=== PATIENT | male | born 1935 | race Caucasian/White ===

== ENCOUNTER → 2020-02-15 09:42 | Outpatient (CLI) | payer MEDICARE, OTHER, SELFPAY ==
[2020-02-16 03:44] LABS: COVID19 Sendout Not Detected (Not Detect)
== END ==
PROVIDERS: Visit Provider Physician Assistant
DX: Z01.812 Encounter for preprocedural laboratory examination (principal)
CPT/HCPCS: 87635

== ENCOUNTER 2020-02-19 14:24 | Inpatient (IN) | payer MEDICARE, OTHER, SELFPAY ==
[2020-02-12 08:46] VITALS: BMI 25.4
[2020-02-18] VITALS (16 sets, daily range): BP systolic 100–161; BP diastolic 50–96; PULSE 45–98; RESP 12–18; TEMP 35.6–36.8; O2SAT 95–98; BMI 25.4
--- NOTE | 2020-02-18 | DI.RAD.S_ITS ---
PROCEDURE: XR KNEE RT 1TO2V INDICATIONS: TOTAL RIGHT KNEE TECHNIQUE: 2 view(s) of the knee acquired. COMPARISON: None. FINDINGS: Bones: Patient is status post knee joint arthroplasty. Hardware components are in expected positions. Visualized bony structures are intact. Soft tissues: Overlying postoperative changes are noted. IMPRESSION: Post right total knee arthroplasty changes with anatomic right knee alignment. Dictated by: Juan Noble M.D. on 02/18/2020 at 13:02 Approved by: Juan Noble M.D. on 02/18/2020 at 13:03
[2020-02-18] MEDS: LACTATED RINGERS 1,000 ML 42 ML IV (08:40)
--- NOTE | 2020-02-18 09:02 | PM.PREOP ---
Pre-operative Note COVID-19 COVID-19 status: Negative Result date/Date tested (Pos, Neg/Pending): 02/16/20 Interval Note History & Physical reviewed/Exam performed by Physician: Yes Changes to H&P: No
--- NOTE | 2020-02-18 09:03 | PM.OP.1 ---
Operative Date/Time/Diagnoses Date of procedure: 02/18/20 Time of procedure: 11:17 Pre-op diagnosis: Right knee osteoarthritis Post-op diagnosis: same Procedure & Clinicians Procedure: Right total knee arthroplasty Same procedure as scheduled: Yes Indications: The patient presents today for total knee arthroplasty after failure of conservative treatment. The nature of the procedure including the risks and benefits, alternatives, postoperative course and expected outcome were discussed and all questions answered. Consent was obtained. Operative site confirmed and marked. Surgeon: Ion Medeiros Iphone Developer: William Armstrong Anesthesia Type: General, Spinal and Local Operative Notes Closure Type: primary Specimen(s): none sent Prosthetic devices, grafts, tissues, transplants, or devices: [employer] [facility] BCS: 7 femoral component, 6 tibial component, 9 mm BCS polyethylene tray and 35 x 10 mm round patella Applied: implant(s) Estimated Blood Loss (mL): 10 Blood products transfused: none Tourniquet time (min): 58 Procedure in detail: The patient was taken to the operative suite and placed under anesthesia. The patient was given prophylactic antibiotics prior to surgery. The patient was also given tranexamic acid, 1 g, just prior to surgery for postoperative hemostasis. The lateral knee was prepped and the joint injected with 20 mL of 1% Lidocaine with epinephrine. The knee was then prepped and draped in usual sterile fashion. The leg was exsanguinated with an Esmarch dressing and the tourniquet raised to 250 torr. A 15 cm anterior incision was made. Next a medial trivector arthrotomy was made. The extensor mechanism was marked to ensure accurate repair. Initial exposing dissection was carried out medially and laterally. The knee was then flexed and the intramedullary femoral guide belinda placed. The distal femoral cut was made in 6? of valgus at the +0 position. The femoral size was measured and the appropriate cutting block was then placed and the anterior, posterior and chamfer cuts made. The intramedullary tibial alignment belinda was then placed. The guide was set to remove approximately 9 mm from the lateral side. The proximal tibial cut was then made with an oscillating saw. All meniscus and bony debris was then removed. Posterior femoral osteophytes removed with a curved osteotome. Flexion extension gaps were checked. There was just mild tightness medially especially in flexion. This was corrected with percutaneous release of the MCL with an 18 gauge needle. The soft tissues were then injected with a combination of 20 mL of half percent Marcaine with epinephrine and 20 mL of Exparel. The trial components were then placed. The knee was then extended and the patellar thickness was measured and a cut made removing approximately 9 mm of bone. The patella was then sized and drilled. Some excess lateral bone was excised and the patellofemoral ligament released. The knee went into full extension and flexion beyond 130?. There was excellent medial-lateral balance throughout motion. Patellar tracking was excellent. The trial components were removed and the knee was cleansed with Pulsavac irrigation and dried. The final components were cemented with high viscosity vacuum mixed bone cement with antibiotics. The joint was filled with a dilute Betadine solution. The knee was held in extension and the patellar clamped until the cement was adequately cured. The knee was then irrigated. The extensor mechanism was closed with 5 interrupted #1 Vicryl sutures and a running Quill suture at approximately 90 degrees of flexion. The joint was then injected with a combination of 1 g of tranexamic acid and 20 mL of quarter percent Marcaine with epinephrine. The subcutaneous tissue was closed with 2 0 Vicryl. The skin was closed with absorbable subcuticular sutures and surgical adhesive. An Aquacel dressing and Chapito wrap were then applied. The patient tolerated the procedure well and was returned to recovery room in good condition. Complications: none Post-operative Condition: stable Disposition: PACU Plan for aftercare: [facility] protocol.
[2020-02-18] MEDS: CEFAZOLIN 2 GM/100 ML FROZ.PIGGY IV ×2 (09:55→18:14)
[2020-02-18] MEDS: LIDOCAINE 1% W/EPI 20 ML INJ (10:10)
[2020-02-18] MEDS: TRANEXAMIC ACID 1,000 MG VIAL 1000 MG IV (10:17)
--- NOTE | 2020-02-18 10:29 | SUR.OPER ---
Supine on padded OR bed. Pillow under head, arms secured on padded armboards <90 degree abduction. Safety belt across torso. Non-operative leg secured with tape over blanket over lower leg. Operative leg secured in DeMayo/Franko positioner. Foam padded brace at thigh of operative leg.
[2020-02-18] MEDS: BUPIVACAINE 0.25% W/ EPI (PF) 40 ML, BUPIVACAINE LIPOSOME 266 MG, SODIUM CHLORIDE 0.9% ... INJ (10:38)
[2020-02-18] MEDS: SODIUM CHLORIDE IRRIG SOLUTION 250 ML, POVIDONE-IODINE SPONGE STICKS 1 APPLIC IRR (10:43)
[2020-02-18] MEDS: TRANEXAMIC ACID 1,000 MG VIAL 1000 MG INJ (10:49)
[2020-02-18] MEDS: BUPIVACAINE 0.25% W/ EPI 30 ML VIAL 20 ML INJ (11:03)
[2020-02-18] MEDS: SODIUM CHLORIDE 0.9% FLUSH 20 ML IV (11:05)
[2020-02-18] MEDS: LACTATED RINGERS 1,000 ML 100 ML IV (13:20)
[2020-02-18] MEDS: IBUPROFEN 400 MG TABLET PO ×2 (13:22→16:52)
--- NOTE | 2020-02-18 14:10 | PT.IIE ---
Current Diagnoses Unilateral primary osteoarthritis, right knee (02/18/20) Surgery Performed Operation Date: 02/18/20 09:00 Actual Procedures p Total Knee Arthroplasty(Right) - Ion Medeiros MD Surgical History (Last Updated 02/12/20 @ 09:19 by Tati Lin RN) H/O cardiac radiofrequency ablation (Acute 08/03/09) H/O vasectomy (Acute) History of colonoscopy (Acute) History of coronary angioplasty with insertion of stent (Acute) Hx of arthroscopic knee surgery (Acute) Hx of bilateral cataract extraction (Acute) Hx of heart artery stent (Acute 06/2009) Hx of hernia repair (Acute) Hx of shoulder surgery (Acute) Hx of tonsillectomy (Acute) Medical History (Last Updated 02/12/20 @ 09:19 by Tati Lin RN) Ascending aorta enlargement (Acute) CAD (coronary artery disease) (Acute) Easy bruisability (Acute) Esophageal spasm (Acute) Former smoker (Acute) Gout (Acute) HLD (hyperlipidemia) (Acute) HTN (hypertension) (Acute) Hypothyroidism (Acute) Nonrheumatic aortic (valve) stenosis (Acute) Subdural hematoma (Acute) TIA (transient ischemic attack) (Acute) Physical Therapy Inpatient Evaluation/Re-Eval M1 PT/OT-IP Prior Functional Status Start: 02/18/20 15:47 Freq: NEEDED Status: Active Protocol: Document 02/18/20 14:10 AB (Rec: 02/18/20 16:24 AB [id number]) Medical Review Prior Functional Status Medical History Reviewed Yes Communication able to make needs known Mobility and Gait pt stated that he is independent with all mobilities and ambulation without AD. Social History Household Members spouse Living Arrangements House Number of Floors (Floors) Two Floors Number of Stairs To Enter/Railing? has a sunken living room with 2 steps down with 1/2 wall ledge on either side but can only use one side at a time has 2 steps to enter with R rail + 1 platform step to enter Home Environment Standard Height Toilet,Walk in Shower Home Equipment Four Wheel Walker,Straight Cane,Hand Held Shower,Grab Bars In Shower Additional Social History Comment pt has a regular bed with R side bedrail wpouse will not be able to assist pt physically; son may assist if needed M2 PT-IP Current Condition Start: 02/18/20 15:47 Freq: NEEDED Status: Active Protocol: Document 02/18/20 14:10 AB (Rec: 02/18/20 16:24 AB [id number]) Physical Therapy Current Condition Current Condition Evaluation Date 02/18/20 Treatment Diagnosis s/p R TKA; difficulty in walking Onset Date 02/18/20 Weight Bearing Status Weight Bearing Status Weight Bear as Tolerated Allowed Weight Bearing Amount (enter % WBAT RLE or #) (%) M3 PT-IP Subjective Start: 02/18/20 15:47 Freq: NEEDED Status: Active Protocol: Document 02/18/20 14:10 AB (Rec: 02/18/20 16:24 AB [id number]) Subjective Physical Therapy Visit Type Type Initial Evaluation Visit Start Time 14:10 Visit Stop Time 14:44 Total Visit Minutes 34 Number of DELIVERY MANAGER Visits 0 Physical Therapy Visit Comments Patient Comments pt agreeable to do PT Therapy Pain Assessment Pain Present Pain Present Denied Pain M4 PT-IP Mobility and Gait Start: 02/18/20 15:47 Freq: NEEDED Status: Active Protocol: Document 02/18/20 14:10 AB (Rec: 02/18/20 16:24 AB [id number]) PT-Bed Mobility Assessment Supine to Sit Supine to Sit Standby Assistance Sit to Supine Sit to Supine Standby Assistance Scooting Scooting to Edge of Bed Contact Guard Assistance PT-Transfer Assessment Sit to and From Stand Sit to and from Stand Moderate Assistance,Maximum Assistance,1 Person Assistance ,2 Person Assistance,Use of Upper Extremities Equipment Transfer Assistive Device Gait Belt,Front Wheeled Walker Orthotic/Prosthetic Devices or Brace: Yes Comments Mobility Comments pt stated that he can feels his legs but not so much of his buttocks. completed supine to sit SBA. required CGA with sitting on EOB. pt has difficulty with trunk control and stated that he cannot feel his butts much. completed sit to stand max A and cues with a 2nd person CGA to min A. pt with increase forward trunk lean and is standing on his toes, cued pt to correct posture and required max A to center self . pt stated that he is definitely still has numbness on his hips. completed sit to stand again mod A x 2 and pt completed marching in place mod A x 2 using FWW and cues. pt able to take side steps to the HOB ~ 2 ft to position using FWW mod A x 2. pt completed sit to supine SBA and cues. positioned pt on bed. call light and table placed within reach. Gait Assessment Gait Gait Assistance Required: Moderate Assistance,2 Person Assist Distance (Feet) 2 Able to Maintain Weight Bearing Status Yes During Gait Assistive Devices Assistive Device Gait Belt,Front Wheeled Walker Orthotic/Prosthetic Devices or Brace: No Gait Deviations General Gait Pattern Antalgic,Decreased Stride Length,Decreased Feet Clearance,Step-to Gait Factors Limiting Gait Function Factors Limiting Gait Function Decreased Sensation,Decreased Strength,Poor Balance,Poor Safety Awareness Comments Gait Comments pls refer to mobility section for details PT-Balance Assessment Sitting Balance and Reactions Static Sitting Balance Ability Fair Dynamic Sitting Balance Ability Fair Standing Balance and Reactions Static Standing Balance Ability Poor Dynamic Standing Balance Ability Poor Device Used FWW M5 PT-IP Objective Assessments Start: 02/18/20 15:47 Freq: NEEDED Status: Active Protocol: Document 02/18/20 14:10 AB (Rec: 02/18/20 16:24 AB [id number]) Orientation Orientation/Cognition Level of Alertness Alert Orientation Name,Age,Place,Situation Safety Awareness Decreased Safety Awareness Gross Range of Motion Lower Extremity ROM Assessment Right Impaired Impairments R knee flexion ~ 90 deg Strength Lower Extremity Strength Assessment Right Impaired Hip 3/5 Knee 3+/5 Sensation Assessment Sensation Light Touch Impaired Proprioception (Position) Impaired Sensation Description Numbness Comments Sensation Comments B hips and buttocks numbness M6 PT-IP Treatment Start: 02/18/20 15:47 Freq: NEEDED Status: Active Protocol: Document 02/18/20 14:10 AB (Rec: 02/18/20 16:24 AB [id number]) Physical Therapy Treatment Exercises Exercises Heel Slides Education Education Provided Precautions,Weight Bearing Status,Post-Op Packet,Safety M7 PT-IP Assessment and Plan Start: 02/18/20 15:47 Freq: NEEDED Status: Active Protocol: Document 02/18/20 14:10 AB (Rec: 02/18/20 16:24 AB [id number]) PT Summary Assessment and Plan Potential Rehabilitation Potential Fair Status of Condition at Evaluation Evolving Summary Impairments Pain,ROM,Strength,Balance, Sensation,Bed Mobility, Transfers,Gait,Activity Tolerance Assessment Summary pt s/p R TKA and just had surgery this morning. pt still c/o numbness on B hips and buttocks but able to feels knees/lower leg and feet. pt with decrease trunk control due to numbness and unable to do much activity with PT. pt requiring 2 person assist at this time and will require continued assessment for progress for safe d/c plan. pt wants to go home but spouse will not be able to physically assist him due to 's own medical issues. pt stated that his son that lives close by can assist if needed. Goals Bed Mobility Goal Independent Transfer Goal Independent,Front Wheeled Walker,Four Wheeled Walker Gait Goal Independent,Front Wheel Walker ,Four Wheel Walker Gait Distance 150 Other Goals up/down 2 steps R rail and 1 platform step SBA Days to Meet Goals 5 Frequency of Treatment Frequency Of Treatment Twice a Day Treatment Plan Physical Therapy Treatment Plan Bed Mobility Training,Transfer Training,Gait Training, Therapeutic Exercise,Balance Retraining,Post Op Education, Discharge Planning,Hot or Cold Pack,Neuromuscular Re-ed, Coordination Retraining,Manual Therapy Other Recommendations and Next Treatment ambulation, stair climbing, Focus caregiver training Recommendations To Nursing Amount of Assist Needed PT/OT Assist Only Discharge Recommendations PT Discharge Recommendations Home with Assistance,Home Health,SNF Rehab Other Discharge Recommendations depending on progress : SNF vs home with assist and HHPT Equipment Needed for Home Before FWW if not safe with 4WW Discharge Transportation Needs at Discharge Private Vehicle,Wheelchair/ Cabulance
--- NOTE | 2020-02-18 14:10 | PT.IIE ---
Current Diagnoses Unilateral primary osteoarthritis, right knee (02/18/20) Surgery Performed Operation Date: 02/18/20 09:00 Actual Procedures p Total Knee Arthroplasty(Right) - Ion Medeiros MD Surgical History (Last Updated 02/12/20 @ 09:19 by Tati Lin RN) H/O cardiac radiofrequency ablation (Acute 08/03/09) H/O vasectomy (Acute) History of colonoscopy (Acute) History of coronary angioplasty with insertion of stent (Acute) Hx of arthroscopic knee surgery (Acute) Hx of bilateral cataract extraction (Acute) Hx of heart artery stent (Acute 06/2009) Hx of hernia repair (Acute) Hx of shoulder surgery (Acute) Hx of tonsillectomy (Acute) Medical History (Last Updated 02/12/20 @ 09:19 by Tati Lin RN) Ascending aorta enlargement (Acute) CAD (coronary artery disease) (Acute) Easy bruisability (Acute) Esophageal spasm (Acute) Former smoker (Acute) Gout (Acute) HLD (hyperlipidemia) (Acute) HTN (hypertension) (Acute) Hypothyroidism (Acute) Nonrheumatic aortic (valve) stenosis (Acute) Subdural hematoma (Acute) TIA (transient ischemic attack) (Acute) Physical Therapy Inpatient Evaluation/Re-Eval M1 PT/OT-IP Prior Functional Status Start: 02/18/20 15:47 Freq: NEEDED Status: Active Protocol: Document 02/18/20 14:10 AB (Rec: 02/18/20 16:24 AB [id number]) Medical Review Prior Functional Status Medical History Reviewed Yes Communication able to make needs known Mobility and Gait pt stated that he is independent with all mobilities and ambulation without AD. Social History Household Members spouse Living Arrangements House Number of Floors (Floors) Two Floors Number of Stairs To Enter/Railing? has a sunken living room with 2 steps down with 1/2 wall ledge on either side but can only use one side at a time has 2 steps to enter with R rail + 1 platform step to enter Home Environment Standard Height Toilet,Walk in Shower Home Equipment Four Wheel Walker,Straight Cane,Hand Held Shower,Grab Bars In Shower Additional Social History Comment pt has a regular bed with R side bedrail wpouse will not be able to assist pt physically; son may assist if needed M2 PT-IP Current Condition Start: 02/18/20 15:47 Freq: NEEDED Status: Active Protocol: Document 02/18/20 14:10 AB (Rec: 02/18/20 16:24 AB [id number]) Physical Therapy Current Condition Current Condition Evaluation Date 02/18/20 Treatment Diagnosis s/p R TKA; difficulty in walking Onset Date 02/18/20 Weight Bearing Status Weight Bearing Status Weight Bear as Tolerated Allowed Weight Bearing Amount (enter % WBAT RLE or #) (%) M3 PT-IP Subjective Start: 02/18/20 15:47 Freq: NEEDED Status: Active Protocol: Document 02/18/20 14:10 AB (Rec: 02/18/20 16:24 AB [id number]) Subjective Physical Therapy Visit Type Type Initial Evaluation Visit Start Time 14:10 Visit Stop Time 14:44 Total Visit Minutes 34 Number of PLANT CONTROLS SPECIALIST Visits 0 Physical Therapy Visit Comments Patient Comments pt agreeable to do PT Therapy Pain Assessment Pain Present Pain Present Denied Pain M4 PT-IP Mobility and Gait Start: 02/18/20 15:47 Freq: NEEDED Status: Active Protocol: Document 02/18/20 14:10 AB (Rec: 02/18/20 16:24 AB [id number]) PT-Bed Mobility Assessment Supine to Sit Supine to Sit Standby Assistance Sit to Supine Sit to Supine Standby Assistance Scooting Scooting to Edge of Bed Contact Guard Assistance PT-Transfer Assessment Sit to and From Stand Sit to and from Stand Moderate Assistance,Maximum Assistance,1 Person Assistance ,2 Person Assistance,Use of Upper Extremities Equipment Transfer Assistive Device Gait Belt,Front Wheeled Walker Orthotic/Prosthetic Devices or Brace: Yes Comments Mobility Comments pt stated that he can feels his legs but not so much of his buttocks. completed supine to sit SBA. required CGA with sitting on EOB. pt has difficulty with trunk control and stated that he cannot feel his butts much. completed sit to stand max A and cues with a 2nd person CGA to min A. pt with increase forward trunk lean and is standing on his toes, cued pt to correct posture and required max A to center self . pt stated that he is definitely still has numbness on his hips. completed sit to stand again mod A x 2 and pt completed marching in place mod A x 2 using FWW and cues. pt able to take side steps to the HOB ~ 2 ft to position using FWW mod A x 2. pt completed sit to supine SBA and cues. positioned pt on bed. call light and table placed within reach. Gait Assessment Gait Gait Assistance Required: Moderate Assistance,2 Person Assist Distance (Feet) 2 Able to Maintain Weight Bearing Status Yes During Gait Assistive Devices Assistive Device Gait Belt,Front Wheeled Walker Orthotic/Prosthetic Devices or Brace: No Gait Deviations General Gait Pattern Antalgic,Decreased Stride Length,Decreased Feet Clearance,Step-to Gait Factors Limiting Gait Function Factors Limiting Gait Function Decreased Sensation,Decreased Strength,Poor Balance,Poor Safety Awareness Comments Gait Comments pls refer to mobility section for details PT-Balance Assessment Sitting Balance and Reactions Static Sitting Balance Ability Fair Dynamic Sitting Balance Ability Fair Standing Balance and Reactions Static Standing Balance Ability Poor Dynamic Standing Balance Ability Poor Device Used FWW M5 PT-IP Objective Assessments Start: 02/18/20 15:47 Freq: NEEDED Status: Active Protocol: Document 02/18/20 14:10 AB (Rec: 02/18/20 16:24 AB [id number]) Orientation Orientation/Cognition Level of Alertness Alert Orientation Name,Age,Place,Situation Safety Awareness Decreased Safety Awareness Gross Range of Motion Lower Extremity ROM Assessment Right Impaired Impairments R knee flexion ~ 90 deg Strength Lower Extremity Strength Assessment Right Impaired Hip 3/5 Knee 3+/5 Sensation Assessment Sensation Light Touch Impaired Proprioception (Position) Impaired Sensation Description Numbness Comments Sensation Comments B hips and buttocks numbness M6 PT-IP Treatment Start: 02/18/20 15:47 Freq: NEEDED Status: Active Protocol: Document 02/18/20 14:10 AB (Rec: 02/18/20 16:24 AB [id number]) Physical Therapy Treatment Exercises Exercises Heel Slides Education Education Provided Precautions,Weight Bearing Status,Post-Op Packet,Safety M7 PT-IP Assessment and Plan Start: 02/18/20 15:47 Freq: NEEDED Status: Active Protocol: Document 02/18/20 14:10 AB (Rec: 02/18/20 16:24 AB [id number]) PT Summary Assessment and Plan Potential Rehabilitation Potential Fair Status of Condition at Evaluation Evolving Summary Impairments Pain,ROM,Strength,Balance, Sensation,Bed Mobility, Transfers,Gait,Activity Tolerance Assessment Summary pt s/p R TKA and just had surgery this morning. pt still c/o numbness on B hips and buttocks but able to feels knees/lower leg and feet. pt with decrease trunk control due to numbness and unable to do much activity with PT. pt requiring 2 person assist at this time and will require continued assessment for progress for safe d/c plan. pt wants to go home but spouse will not be able to physically assist him due to 's own medical issues. pt stated that his son that lives close by can assist if needed. Goals Bed Mobility Goal Independent Transfer Goal Independent,Front Wheeled Walker,Four Wheeled Walker Gait Goal Independent,Front Wheel Walker ,Four Wheel Walker Gait Distance 150 Other Goals up/down 2 steps R rail and 1 platform step SBA Days to Meet Goals 5 Frequency of Treatment Frequency Of Treatment Twice a Day Treatment Plan Physical Therapy Treatment Plan Bed Mobility Training,Transfer Training,Gait Training, Therapeutic Exercise,Balance Retraining,Post Op Education, Discharge Planning,Hot or Cold Pack,Neuromuscular Re-ed, Coordination Retraining,Manual Therapy Other Recommendations and Next Treatment ambulation, stair climbing, Focus caregiver training Recommendations To Nursing Amount of Assist Needed PT/OT Assist Only Discharge Recommendations PT Discharge Recommendations Home with Assistance,Home Health,SNF Rehab Other Discharge Recommendations depending on progress : SNF vs home with assist and HHPT Transportation Needs at Discharge Private Vehicle,Wheelchair/ Cabulance
--- NOTE | 2020-02-18 14:12 | PC.NURSE ---
Pt sitting up in bed eating a sandwich and drinking coffee. Denies pain, nausea, or shortness of breath. RT in to teach I.S. and Pt performed well. O2 removed and Pt O2 sat 96% RA. Pt oriented to room, call light, bed controls and tv controls. Pt agrees to not attempt to get up without assistance from staff. Pt denies needs at this time.
--- NOTE | 2020-02-18 17:02 | PC.NURSE ---
Addendum entered by Cassie Blum R.N. 02/18/20 23:33: Admits to right knee pain 11/17. Has been offered narcotics and declined this evening. Ice to right knee. Able to bear weight and stand @ bedside to attempt to void. Addendum entered by Cassie Blum R.N. 02/18/20 23:24: Voided 25 cc's. Discussion with pt re catheterization. Pt prefers more time to attempt to void independently. NOC RN included in this discussion. Addendum entered by Cassie Blum R.N. 02/18/20 22:38: Pt reports feels urge to void. States feels full sensation to buttocks and genitalia. Requests assistance to stand and was able to do so with minimal assistance. No void. Sitting up at edge of bed and no void. Bladder scanned by LAP POLISHER for 407 cc's. Discussed with pt straight catheterization and pt reports prefers to try to void without this intervention. States has been in this situation previously with other hospitalization/surgery and was able to void given time. Pt's request was respected and granted. C/o nausea @ 2100 and refused tylenol and ibuprofen. ODT zofran administered with resolution of symptoms. No change in neurovascular status this evening shift RLE. Addendum entered by Cassie Blum R.N. 02/18/20 17:30: Per LAP POLISHER, pt incontinent in bed. Bladder scanned post void for 665 cc/s. Discussed with pt need to straight cath. Original Note: Pt now awake and alert in bed. Quietly resting with eyes closed in bed @ change of shift. Admits to sensation to BL LE's, but states buttocks and genitalia are numb. Discussed with pt need to monitor bladder fullness via bladder scanner. Pt in agreement. Ice to right knee and BL calf scd's in place. Room air 94-96%. Chapito wrap to right knee is dry and intact. Denies pain to right knee.
[2020-02-18] MEDS: ONDANSETRON 4 MG ODT PO (20:42)
[2020-02-18] MEDS: ASPIRIN EC 81 MG TABLET PO (21:36)
[2020-02-18] MEDS: METOPROLOL ER 50 MG TABLET PO (21:37)
[2020-02-18] MEDS: DOCUSATE 100 MG CAPSULE PO (21:37)
[2020-02-18] MEDS: ATORVASTATIN 20 MG TABLET 40 MG PO (21:37)
[2020-02-18] MEDS: dilTIAZem CD 120 MG CAP PO (21:37)
[2020-02-19] VITALS (8 sets, daily range): BP systolic 128–163; BP diastolic 65–93; PULSE 65–100; RESP 14–19; TEMP 36.4–36.8; O2SAT 93–98
[2020-02-19] MEDS: LACTATED RINGERS 1,000 ML 100 ML IV (00:45)
[2020-02-19] MEDS: OXYCODONE IR 10 MG TABLET PO ×5 (00:45→23:38)
[2020-02-19] MEDS: CEFAZOLIN 2 GM/100 ML FROZ.PIGGY IV (02:11)
[2020-02-19] MEDS: ZOLPIDEM 5 MG TABLET 10 MG PO ×2 (02:13→20:16)
--- NOTE | 2020-02-19 02:44 | PC.NURSE ---
Addendum entered by Renetta Ramos R.N. 02/19/20 06:31: Voided only 10cc this morning but denies feeling bladder pressure. Pulled out IV when up to BSC so new IV inserted. When attempting to get off BSC to go back to bed, walker was sitting sideways to commode and patient attempted to use walker without putting it in front of him. Instructed in proper use of walker. Original Note: Patient seen and assessed at 2332. Is alert and oriented. Breath sounds CTA with RA sat of 96%. HRR. Denies nausea. BT present and is passing flatus. Unable to void and was straight cathed on evening shift and now only able to urinate 25cc with bladder scan prior to shift change showing 407cc. Wanted to wait to see if could urinate more but at 0030 requested in/out cath be done again as uncomfortable due to pressure. In/out cath done with 875cc returned; urine with some hematuria initially and at the end but urine otherwise clear daniel. Is able to move himself in bed and up to BSC with 1 assist + walker. Aquacel dressing covered with stacey wrap to right knee; CDI. CMS intact with no residual numbness. Wearing bilateral calf SCD's. Stated pain was only 3/10 and tolerable declining pain medication but at 0045 was medicated with Oxycodone for 5/10 knee pain; declined scheduled Ibuprofen. Fall risk score is moderate; bed alarm is activated.
--- NOTE | 2020-02-19 07:16 | PM.PNPO.1 ---
Subjective Subjective Date Patient Seen: 02/19/20 Time Patient Seen: 07:16 Interval history: Rosalio is doing well with respect to his right knee. He is not having any real pain. His main issue has been urination. He has had to be straight cathed twice over the night which bothers his sleep. Exam Vital Signs (past 8 hours): - 02/18/20 23:50 02/19/20 06:00 Temperature 98.3 F 97.6 F Pulse Rate 98 H 100 H Respiratory Rate 18 18 Blood Pressure 139/88 130/65 Pulse Oximetry 96 97 Oxygen Delivery Method Room Air Oxygen Flow Rate 0 Narrative Exam Narrative: Knee dressing is clean and dry. He is fully neurovascularly intact and able to do a straight leg raise. Expected swelling. Assessment & Plan Post-op Postoperative Procedures: Procedures Operation Date: 02/18/20 09:00 Actual Procedures Side Surgeon p Total Knee Arthroplasty Right Ion Medeiros MD Postoperative day: 1 Postoperative status narrative: Progressing as expected after total knee arthroplasty except for difficulty with urination. Flomax has been prescribed. We will continue to mobilize with physical therapy. If there is continued difficulty with urination discharge may have to be delayed. He will otherwise be discharged to home later today. Time Spent With Patient Time with patient: less than 15 minutes Quality VTE Deep Vein Thrombosis/Pulmonary Embolism Present on Admission: No
[2020-02-19 07:32] LABS: Hematocrit 43.6 % (41-53)
[2020-02-19] MEDS: ASPIRIN EC 81 MG TABLET PO ×2 (07:49→20:13)
[2020-02-19] MEDS: TAMSULOSIN 0.4 MG CAPSULE PO (07:50)
[2020-02-19] MEDS: PANTOPRAZOLE 40 MG TABLET PO (07:50)
[2020-02-19] MEDS: DOCUSATE 100 MG CAPSULE PO ×2 (07:50→20:13)
[2020-02-19] MEDS: LEVOTHYROXINE 100 MCG TABLET PO (07:50)
[2020-02-19] MEDS: SODIUM CHLORIDE 0.9% FLUSH 10 ML IV ×2 (07:54→20:17)
--- NOTE | 2020-02-19 08:55 | PT.IPTN ---
Current Diagnoses Unilateral primary osteoarthritis, right knee (02/18/20) Surgery Performed Operation Date: 02/18/20 09:00 Actual Procedures p Total Knee Arthroplasty(Right) - Ion Medeiros MD Physical Therapy Treatment Note M2 PT-IP Current Condition Start: 02/18/20 15:47 Freq: NEEDED Status: Active Protocol: Document 02/18/20 14:10 AB (Rec: 02/18/20 16:24 AB [id number]) Physical Therapy Current Condition Current Condition Evaluation Date 02/18/20 Treatment Diagnosis s/p R TKA; difficulty in walking Onset Date 02/18/20 Weight Bearing Status Weight Bearing Status Weight Bear as Tolerated Allowed Weight Bearing Amount (enter % WBAT RLE or #) (%) M3 PT-IP Subjective Start: 02/18/20 15:47 Freq: NEEDED Status: Active Protocol: Document 02/19/20 08:55 AB (Rec: 02/19/20 13:33 AB [id number]) Subjective Physical Therapy Visit Type Type Treatment Note Visit Start Time 08:55 Visit Stop Time 09:26 Total Visit Minutes 31 Number of RN INTERNSHIP Visits 0 Physical Therapy Visit Comments Patient Comments pt agreeable to do PT Therapy Pain Assessment Pain When Pain Assessed At Rest Pain Present Pain Present Pain Reported Location Right Knee Intensity 2 Scale Used Numeric (0 - 10) Pain Management Techniques Re-positioning,Timing of Activity with Medications M4 PT-IP Mobility and Gait Start: 02/18/20 15:47 Freq: NEEDED Status: Active Protocol: Document 02/19/20 08:55 AB (Rec: 02/19/20 13:33 AB [id number]) PT-Bed Mobility Assessment Supine to Sit Supine to Sit Standby Assistance Scooting Scooting to Edge of Bed Standby Assistance PT-Transfer Assessment Sit to and From Stand Sit to and from Stand Standby Assistance,1 Person Assistance,Use of Upper Extremities Equipment Transfer Assistive Device Gait Belt,Front Wheeled Walker ,4 Wheeled Walker Transfers Transfer Destination Toilet Transfer Technique ambulated using FWW Transfer Ability Level of Assist Standby Assistance,Contact Guard Assistance Comments Mobility Comments completed supine to sit SBA. requested to use the toilet and completed sit to stand SBA and ambulated to the toilet using FWW SBA. Assessed ambulated using 4WW SBA to CGA and cues. ambulated in the hallway ~ 150 ft SBA to CGA. pt completed up/down steps and ambulated back to his room ~ 200 ft SBA. pt requested to use the toilet again and ambulated to the toilet using 4WW SBA. left pt with call light and informed nurse that pt wants to use toilet for awhile. Gait Assessment Gait Gait Assistance Required: Standby Assistance,Contact Guard Assist Distance (Feet) 200 Assistive Devices Assistive Device Gait Belt,Front Wheeled Walker ,4 Wheeled Walker Orthotic/Prosthetic Devices or Brace: No Gait Deviations General Gait Pattern Antalgic,Decreased Stride Length,Decreased Feet Clearance Factors Limiting Gait Function Factors Limiting Gait Function Decreased Activity Tolerance, Decreased Strength,Limited Range of Motion,Pain,Poor Balance,Poor Safety Awareness Comments Gait Comments pls refer to mobility section for details Stair Climbing Assessment Evaluation Level of Assist On Stairs Standby Assistance,Contact Guard Assistance,1 Person Assistance Devices Stair Climbing Assistive Devices Four Wheel Walker,Right Railing Technique/Endurance Stair Climbing Direction Ascend and Descend Stair Climbing Technique Step to Step Number of Steps Climbed 3 Stair Climbing Set # Repetitions (reps) 1 Comments Stair Climbing Comments also completed platform step x 2 reps using 4WW CGA M5 PT-IP Objective Assessments Start: 02/18/20 15:47 Freq: NEEDED Status: Active Protocol: Document 02/18/20 14:10 AB (Rec: 02/18/20 16:24 AB [id number]) Orientation Orientation/Cognition Level of Alertness Alert Orientation Name,Age,Place,Situation Safety Awareness Decreased Safety Awareness Gross Range of Motion Lower Extremity ROM Assessment Right Impaired Impairments R knee flexion ~ 90 deg Strength Lower Extremity Strength Assessment Right Impaired Hip 3/5 Knee 3+/5 Sensation Assessment Sensation Light Touch Impaired Proprioception (Position) Impaired Sensation Description Numbness Comments Sensation Comments B hips and buttocks numbness M6 PT-IP Treatment Start: 02/18/20 15:47 Freq: NEEDED Status: Active Protocol: Document 02/19/20 08:55 AB (Rec: 02/19/20 13:33 AB [id number]) Physical Therapy Treatment Education Education Provided Precautions,Safety M7 PT-IP Assessment and Plan Start: 02/18/20 15:47 Freq: NEEDED Status: Active Protocol: Document 02/19/20 08:55 AB (Rec: 02/19/20 13:33 AB [id number]) PT Summary Assessment and Plan Potential Rehabilitation Potential Good Summary Impairments Pain,ROM,Strength,Balance,Bed Mobility,Transfers,Gait, Activity Tolerance Progress Towards Goals Progressing Toward Goals Assessment Summary pt requiring SBA to CGA with mobility and plans to go home. will be home to assist pt but will not be able to physically assist pt. Pt is doing well with mobility and does not need much physical assistance and may to home when medically stable. pt stated that he is scheduled for out pt PT. Goals Bed Mobility Goal Independent Transfer Goal Independent,Front Wheeled Walker,Four Wheeled Walker Gait Goal Independent,Front Wheel Walker ,Four Wheel Walker Gait Distance 150 Other Goals up/down 2 steps R rail and 1 platform step SBA Days to Meet Goals 5 Frequency of Treatment Frequency Of Treatment Twice a Day Treatment Plan Physical Therapy Treatment Plan Bed Mobility Training,Transfer Training,Gait Training, Therapeutic Exercise,Balance Retraining,Post Op Education, Discharge Planning,Hot or Cold Pack,Neuromuscular Re-ed, Coordination Retraining,Manual Therapy Other Recommendations and Next Treatment ambulation, stair climbing, Focus caregiver training Recommendations To Nursing Amount of Assist Needed 1 Person Assist Discharge Recommendations PT Discharge Recommendations Home with Assistance, Outpatient PT Transportation Needs at Discharge Private Vehicle
--- NOTE | 2020-02-19 11:54 | PC.NURSE ---
Patient still feeling need to void and has tried urinal and sitting in bathroom, but has not been able to empty his bladder except for 100cc of clear yellow urine. Bladder scan shows 600cc retention at this time. Call out to Dr. Medeiros. Continue to monitor.
--- NOTE | 2020-02-19 13:22 | CM.IDA ---
Addendum entered by NELSY Rivas 02/19/20 13:58: According to RN, patient has had some urinary retention, DC order cancelled this afternoon. Original Note: Initial DCP Assessment Note: Patient is an 84 yo male, resident of [facility] [place]. patient is POD#1 from right knee surgery w/Dr Medeiros PCP: Liza Campos Payer: [employer]ammad Reviewed chart. Spoke w/Briseida, PT- patient did very well this morning and has been cleared to return home w/spouse and son to assist as needed. Patient was mostly SBA w/ PT this morning. Met w/patient briefly to introduce role, he confirms no needs from this PC SUPPORT SPECIALIST, eager to return home today. P: DC home w/family via pov today, DC order in place by Ortho team NELSY Rivas Discharge Planning/Care Management CM Discharge Assessment Start: 02/19/20 13:20 Freq: Status: Active Protocol: Document 02/19/20 13:21 CHRISTIANO (Rec: 02/19/20 13:22 CHRISTIANO [id number]) Discharge Planning Assessment Assigned Rn Mds NELSY Lord DPOA/Assigned Designee Name Corrina Price, spouse Claudy (son) Contact Information spouse [phone], [phone] Advance Directives? Yes Advance Directives on File No History Provided By Patient Prior Living Arrangements House Household Members spouse Type of transporation used prior to Drives own vehicle admit Independent with ADL's Yes Is patient alert and oriented? Yes Patient/Family Preference OP PT Therapy Barriers to Discharge No Discharge Plan Home Transportation Arrangement Family Referrals Initiated None needed
--- NOTE | 2020-02-19 15:09 | PT.IPTN ---
Current Diagnoses Unilateral primary osteoarthritis, right knee (02/19/20) Surgery Performed Operation Date: 02/18/20 09:00 Actual Procedures p Total Knee Arthroplasty(Right) - Ion Medeiros MD Physical Therapy Treatment Note M2 PT-IP Current Condition Start: 02/18/20 15:47 Freq: NEEDED Status: Active Protocol: Document 02/18/20 14:10 AB (Rec: 02/18/20 16:24 AB [id number]) Physical Therapy Current Condition Current Condition Evaluation Date 02/18/20 Treatment Diagnosis s/p R TKA; difficulty in walking Onset Date 02/18/20 Weight Bearing Status Weight Bearing Status Weight Bear as Tolerated Allowed Weight Bearing Amount (enter % WBAT RLE or #) (%) M3 PT-IP Subjective Start: 02/18/20 15:47 Freq: NEEDED Status: Active Protocol: Document 02/19/20 15:09 AB (Rec: 02/19/20 16:38 AB [id number]) Subjective Physical Therapy Visit Type Type Treatment Note Visit Start Time 15:09 Visit Stop Time 15:25 Total Visit Minutes 16 Number of TUNNEL MINER Visits 0 Physical Therapy Visit Comments Patient Comments pt agreeable to do PT Therapy Pain Assessment Pain When Pain Assessed At Rest Pain Present Pain Present Pain Reported Location Right Knee Intensity 6 Scale Used Numeric (0 - 10) Pain Management Techniques Apply Cold,Modification of Treatment,Re-positioning, Timing of Activity with Medications M4 PT-IP Mobility and Gait Start: 02/18/20 15:47 Freq: NEEDED Status: Active Protocol: Document 02/19/20 15:09 AB (Rec: 02/19/20 16:38 AB [id number]) PT-Bed Mobility Assessment Supine to Sit Supine to Sit Standby Assistance Sit to Supine Sit to Supine Standby Assistance Scooting Scooting to Edge of Bed Standby Assistance PT-Transfer Assessment Sit to and From Stand Sit to and from Stand Standby Assistance Equipment Transfer Assistive Device Gait Belt,Front Wheeled Walker Orthotic/Prosthetic Devices or Brace: No Gait Assessment Gait Gait Assistance Required: Standby Assistance Distance (Feet) 75 Able to Maintain Weight Bearing Status Yes During Gait Assistive Devices Assistive Device Gait Belt,Front Wheeled Walker Orthotic/Prosthetic Devices or Brace: No Gait Deviations General Gait Pattern Antalgic Factors Limiting Gait Function Factors Limiting Gait Function Decreased Strength,Limited Range of Motion,Pain,Poor Balance,Poor Safety Awareness Comments Gait Comments completed supine to sit SBA. pt can be impulsive. completed sit to stand SBA but has to be cued to wait for PT and 4WW for safety. completed ambulation using 4WW SBA ~ 75 ft but c/o increase knee pain and requested to go back to his room and back to bed SBA. ice pack provided. informed [facility] that pt is requesting pain meds. call light and table positioned next to pt. Stair Climbing Assessment Comments Stair Climbing Comments pt refused to do stair climbing again and feels confident on how he did it this morning M5 PT-IP Objective Assessments Start: 02/18/20 15:47 Freq: NEEDED Status: Active Protocol: Document 02/18/20 14:10 AB (Rec: 02/18/20 16:24 AB [id number]) Orientation Orientation/Cognition Level of Alertness Alert Orientation Name,Age,Place,Situation Safety Awareness Decreased Safety Awareness Gross Range of Motion Lower Extremity ROM Assessment Right Impaired Impairments R knee flexion ~ 90 deg Strength Lower Extremity Strength Assessment Right Impaired Hip 3/5 Knee 3+/5 Sensation Assessment Sensation Light Touch Impaired Proprioception (Position) Impaired Sensation Description Numbness Comments Sensation Comments B hips and buttocks numbness M6 PT-IP Treatment Start: 02/18/20 15:47 Freq: NEEDED Status: Active Protocol: Document 02/19/20 15:09 AB (Rec: 02/19/20 16:38 AB [id number]) Physical Therapy Treatment Education Education Provided Safety M7 PT-IP Assessment and Plan Start: 02/18/20 15:47 Freq: NEEDED Status: Active Protocol: Document 02/19/20 15:09 AB (Rec: 02/19/20 16:38 AB [id number]) PT Summary Assessment and Plan Potential Rehabilitation Potential Good Summary Impairments Pain,ROM,Strength,Balance, Coordination,Sensation,Tone, Cognition,Bed Mobility, Transfers,Gait,Activity Tolerance Progress Towards Goals Progressing Toward Goals Assessment Summary pt requiring SBA with mobility and plans to go home but with difficulty with voiding and pt stated that he is going to stay for then night. pt requires cues for safety as pt can be impulsive. pt may go home when medically stable. Goals Bed Mobility Goal Independent Transfer Goal Independent,Front Wheeled Walker,Four Wheeled Walker Gait Goal Independent,Front Wheel Walker ,Four Wheel Walker Gait Distance 150 Other Goals up/down 2 steps R rail and 1 platform step SBA Days to Meet Goals 5 Frequency of Treatment Frequency Of Treatment Twice a Day Treatment Plan Physical Therapy Treatment Plan Bed Mobility Training,Transfer Training,Gait Training, Therapeutic Exercise,Balance Retraining,Post Op Education, Discharge Planning,Hot or Cold Pack,Neuromuscular Re-ed, Coordination Retraining,Manual Therapy Other Recommendations and Next Treatment ambulation, stair climbing, Focus caregiver training Recommendations To Nursing Amount of Assist Needed 1 Person Assist Discharge Recommendations PT Discharge Recommendations Home with Assistance, Outpatient PT Transportation Needs at Discharge Private Vehicle
--- NOTE | 2020-02-19 18:41 | PC.NURSE ---
Addendum entered by Cassie Blum R.N. 02/19/20 21:54: Ambulatory in hallway with CLINICAL TRIAL HEAD assistance and walker. Requests early bedtime and was given ambien and oxycodone per request. Ice to right knee. BL calf scd's in place. Hong to gravity. Encouraged I.S. use and pt reports able to use to 3000. Bed alarm in place. No change in neurovascular status this evening. Original Note: Pt awake, alert in bed. Taking evening meal well. Admits to right knee pain 6-03/19. Refuses tylenol and ibuprofen, but requests narcotic. Administered oxycodone as ordered. [place] wrap intact to right knee. Ice to site. Pillow to support RLE. Pt admits to full sensation to BL LE's. Hong to gravity with light yellow urine. Pt denies nausea.
[2020-02-19] MEDS: ATORVASTATIN 20 MG TABLET 40 MG PO (20:13)
[2020-02-19] MEDS: METOPROLOL ER 50 MG TABLET PO (20:16)
[2020-02-19] MEDS: dilTIAZem CD 120 MG CAP PO (20:20)
[2020-02-20] VITALS (7 sets, daily range): BP systolic 120–158; BP diastolic 70–98; PULSE 74–98; RESP 15–19; TEMP 36.6–37.5; O2SAT 92–96
--- NOTE | 2020-02-20 00:30 | PC.NURSE ---
Addendum entered by Renetta Ramos R.N. 02/20/20 06:03: Slept well during the night. States pain is 4/10 this morning and just an ache; declines pain medication but accepts offer of ice pack. Original Note: Patient seen and assessed at 0009. Is alert and oriented. Breath sounds CTA with RA sat of 93%. HRR with murmur. Denies nausea. BT present and is passing flatus. Indwelling catheter is patent; urine is clear yellow. Is able to move self in bed. When up is using walker with 1 assist; states he feels weak in right LE. CMS is intact but unable to lift leg off bed tonight. Aquacel dressing covered with stacey wrap is CDI. Complained of 7/10 pain at shift change and was medicated with Oxycodone and now states pain is improving and is 6/10. Wearing bilateral calf SCD's. Fall risk is high and bed alarm is activated.
[2020-02-20] MEDS: OXYCODONE IR 10 MG TABLET PO ×4 (02:36→14:09)
--- NOTE | 2020-02-20 07:05 | P.DS_ITS ---
History of Present Illness History of Present Illness Chief complaint: R TKA 02/17 Discharge Providers Provider Date of admission: 02/19/20 14:24 Discharge Date: 02/20/20 Primary care physician: Liza Campos MD Consults: 02/18/20 12:30 Consult to Discharge Planning Routine Comment: Consult to Physical Therapy Evaluate & Treat Comment: Physician Instructions: postop TKA protocol Consult to Respiratory Therapy Evaluate & Treat Comment: Physician Instructions: Evaluate and treat Discharge provider: Ion Medeiros MD Summary Hospital Course Discharge Diagnosis: Right knee osteoarthritis Hospital Course: The patient had a total knee arthroplasty on the right side the day of admission. He was doing very well with his knee postop day 1 with no significant pain. However, he was unable to urinate. Later in the day a Hong was placed. He has continued to do well although now he is having some more zhao n in the knee. The Hong was removed at 7:00 a.m. in the morning on postop day 2. Discharge is anticipated later in the day as long as he can urinate. Status at Discharge Cognitive/behavioral status at discharge: oriented Functional status at discharge: uses cane/walker Overall status at discharge: patient is progressing back to baseline Time Spent with Patient Time spent: Less than 30 minutes Exam Vital Signs (past 8 hours): - 02/19/20 23:35 02/20/20 06:17 Temperature 98.3 F 98.7 F Pulse Rate 75 85 Respiratory Rate 18 18 Blood Pressure 139/71 120/76 Pulse Oximetry 93 96 Oxygen Delivery Method Room Air Oxygen Flow Rate 0 Narrative Exam Narrative: Dressing is dry and intact. The leg is neurovascularly intact. Patient does have difficulty doing a straight leg today due to pain. Expected swelling. Objective Labs Result Diagrams: 02/19/20 07:04 Labs: Laboratory Results - last 24 hr 02/19/20 07:04 Hgb 15.0 Hct 43.6 Discharge Plan Discharge Plan Patient Disposition: Home Discharge orders & Medications Prescriptions: Continued atorvastatin 40 mg Tablet 40 mg PO BEDTIME RF: 0 metoprolol succinate 50 mg Tablet Extended Release 24 Hr 50 mg PO BEDTIME RF: 0 levothyroxine 100 mcg Tablet 100 mcg PO DAILY RF: 0 diltiazem HCl 120 mg Tablet 120 mg PO BEDTIME RF: 0 pantoprazole 40 mg Tablet,Delayed Release (Dr/Ec) 40 mg PO DAILY RF: 0 zolpidem [Ambien] 10 mg Tablet 10 mg PO BEDTIME PRN (Reason: Sleep) RF: 0 multivitamin Capsule 1 cap PO DAILY RF: 0 Follow up/Referrals: Liza Campos MD [Primary Care Provider] - Ion Medeiros MD [Physician] - 2 Weeks (As previously scheduled) Diet/Activity/Treatments Diet: Regular Activity: WBAT. Daily ROM exercises. Other treatments: Proliance Joint Care Protocol Skin/Wound/Dressing Care Report to your healthcare provider any signs of infection, such as:: chills, fever, increased pain, unusual drainage and unusual redness Dressing: May leave dressing in place for 10-14 days. Visit Report/Discharge Packet Instructions: DI for Knee Replacement, How to Prevent Falls, DI for Urinary Retention in Men, DI for Prescription Opioid Use Discharge Data Primary Care Provider: Liza Campos Quality VTE Deep Vein Thrombosis/Pulmonary Embolism Present on Admission: No
[2020-02-20] MEDS: LEVOTHYROXINE 100 MCG TABLET PO (08:00)
[2020-02-20] MEDS: DOCUSATE 100 MG CAPSULE PO ×2 (08:00→20:52)
[2020-02-20] MEDS: ASPIRIN EC 81 MG TABLET PO ×2 (08:00→20:52)
[2020-02-20] MEDS: TAMSULOSIN 0.4 MG CAPSULE PO (08:00)
[2020-02-20] MEDS: PANTOPRAZOLE 40 MG TABLET PO (08:00)
[2020-02-20] MEDS: SODIUM CHLORIDE 0.9% FLUSH 10 ML IV ×2 (08:02→20:53)
--- NOTE | 2020-02-20 09:45 | CM.DPC ---
Addendum entered by NELSY Grimm 02/20/20 15:12: ADD: Per PT today, pt having increased pain and may not be safe for d/c directly home today and RN updated and will notify MD. Pt likely will remain overnight and per PT may require HH or SNF if pain does not resolve. SW to follow in the morning to determine needs. BF Original Note: DCP Discharge home Per MD, pt is to have carter cath discontinued and then if no urinary retention can safely d/c home later today with no needs. Per RN, waiting for pt to be able to void independently. Plan: SW to follow for likely pt d/c home later today after pt can void independently back to home with spouse. No SW needs at this time. NELSY Grimm
[2020-02-20] MEDS: ACETAMINOPHEN 325 MG TABLET 650 MG PO (10:05)
--- NOTE | 2020-02-20 11:52 | PT.IPTN ---
Current Diagnoses Unilateral primary osteoarthritis, right knee (02/19/20) Surgery Performed Operation Date: 02/18/20 09:00 Actual Procedures p Total Knee Arthroplasty(Right) - Ion Medeiros MD Physical Therapy Treatment Note M2 PT-IP Current Condition Start: 02/18/20 15:47 Freq: NEEDED Status: Active Protocol: Document 02/18/20 14:10 AB (Rec: 02/18/20 16:24 AB [id number]) Physical Therapy Current Condition Current Condition Evaluation Date 02/18/20 Treatment Diagnosis s/p R TKA; difficulty in walking Onset Date 02/18/20 Weight Bearing Status Weight Bearing Status Weight Bear as Tolerated Allowed Weight Bearing Amount (enter % WBAT RLE or #) (%) M3 PT-IP Subjective Start: 02/18/20 15:47 Freq: NEEDED Status: Active Protocol: Document 02/20/20 11:52 AB (Rec: 02/20/20 12:37 AB [id number]) Subjective Physical Therapy Visit Type Type Treatment Note Visit Start Time 11:52 Visit Stop Time 12:12 Total Visit Minutes 20 Number of EDGE INKER UPPERS Visits 0 Physical Therapy Visit Comments Patient Comments c/o 9/10 pain on R knee Therapy Pain Assessment Pain When Pain Assessed At Rest Pain Present Pain Present Pain Reported Location Right Knee Intensity 9 Scale Used Numeric (0 - 10) Pain Behaviors Facial Grimacing,Guarding, Wincing Pain Management Techniques Apply Cold,Distraction, Modification of Treatment,Re- positioning,Timing of Activity with Medications M4 PT-IP Mobility and Gait Start: 02/18/20 15:47 Freq: NEEDED Status: Active Protocol: Document 02/20/20 11:52 AB (Rec: 02/20/20 12:37 AB [id number]) PT-Bed Mobility Assessment Supine to Sit Supine to Sit Maximum Assistance,1 Person Assistance Sit to Supine Sit to Supine 1 Person Assistance Scooting Scooting to Edge of Bed Contact Guard Assistance PT-Transfer Assessment Comments Mobility Comments pt initially refusing and stated that he has a lot of pain but agreed to try to mobilize. prom conducted and pt with increase LE guarding knee flexion obtained: 5 deg. positioned RLE on pillow with ~ 15 deg flexion and pt with c/o increase pain and stated that he feels like he is going to pass out. cued pt to relax and take a deep breath and pain subsided. pt agreed to sit on EOB and required max A for RLE movement. pt was able to sit on EOB ~ 2 min and stated that he has to lay back in bed due to pain. required max A for sit to supine. positioned pt on bed. call light and table placed within reach. informed NAC that pt is having a lot of pain and is asking for pain meds. nurse on lunch breack and NAC will relay info. Gait Assessment Comments Gait Comments unable to ambulate this tx session M5 PT-IP Objective Assessments Start: 02/18/20 15:47 Freq: NEEDED Status: Active Protocol: Document 02/18/20 14:10 AB (Rec: 02/18/20 16:24 AB [id number]) Orientation Orientation/Cognition Level of Alertness Alert Orientation Name,Age,Place,Situation Safety Awareness Decreased Safety Awareness Gross Range of Motion Lower Extremity ROM Assessment Right Impaired Impairments R knee flexion ~ 90 deg Strength Lower Extremity Strength Assessment Right Impaired Hip 3/5 Knee 3+/5 Sensation Assessment Sensation Light Touch Impaired Proprioception (Position) Impaired Sensation Description Numbness Comments Sensation Comments B hips and buttocks numbness M6 PT-IP Treatment Start: 02/18/20 15:47 Freq: NEEDED Status: Active Protocol: Document 02/20/20 11:52 AB (Rec: 02/20/20 12:37 AB [id number]) Physical Therapy Treatment Exercises Exercises Ankle Pumps,Heel Slides, Passive Knee Extension Hang, Seated Knee Flexion/Extension Education Education Provided Safety M7 PT-IP Assessment and Plan Start: 02/18/20 15:47 Freq: NEEDED Status: Active Protocol: Document 02/20/20 11:52 AB (Rec: 02/20/20 12:37 AB [id number]) PT Summary Assessment and Plan Potential Rehabilitation Potential Good Summary Impairments Pain,ROM,Strength,Balance, Coordination,Sensation,Tone, Cognition,Bed Mobility, Transfers,Gait,Activity Tolerance Progress Towards Goals Slow Progress due to Pain,Slow Progress due to Medical Issues Assessment Summary pt unable to ambulate and tolerate tx session today due to c/o 9/10 pain on R knee. d /c plan depending on progress and pain control affecting mobility independence. wll continue to assess progress. Goals Bed Mobility Goal Independent Transfer Goal Independent,Front Wheeled Walker,Four Wheeled Walker Gait Goal Independent,Front Wheel Walker ,Four Wheel Walker Gait Distance 150 Other Goals up/down 2 steps R rail and 1 platform step SBA Days to Meet Goals 5 Frequency of Treatment Frequency Of Treatment Twice a Day Treatment Plan Physical Therapy Treatment Plan Bed Mobility Training,Transfer Training,Gait Training, Therapeutic Exercise,Balance Retraining,Post Op Education, Discharge Planning,Hot or Cold Pack,Neuromuscular Re-ed, Coordination Retraining,Manual Therapy Other Recommendations and Next Treatment ambulation, stair climbing, Focus caregiver training Recommendations To Nursing Amount of Assist Needed 1 Person Assist Discharge Recommendations PT Discharge Recommendations Home with Assistance,SNF Rehab ,Outpatient PT Other Discharge Recommendations depending on progress: SNF vs home with assist and HHPT Equipment Needed for Home Before FWW if not safe with 4WW Discharge Transportation Needs at Discharge Private Vehicle
[2020-02-20] MEDS: HYDROMORPHONE 2 MG TABLET PO ×2 (12:28→16:23)
--- NOTE | 2020-02-20 14:28 | PC.NURSE ---
Day shift note: Patient awake, alert, and oriented. Tolerating PO intake, voided 275 ml, dark yellow urine this shift at 1400, encouraged fluid intake. C/O pain 8/10 increases 10/10 with movement, medicated with Oxycodone 10 mg PO, pain decreased from 10/10 to 8/10. Medicated with Dilaudid 2 mg PO, pain decreased to 6/10. Unable to perform PT outside of room due to pain. CMS intact to RLE, Aquacel CDI, secured with Chapito Wrap. 1+ edema. Awaiting for Ortho call back for update. High fall risk precautions maintained, call light within reach.
--- NOTE | 2020-02-20 16:25 | PT.IPTN ---
Current Diagnoses Unilateral primary osteoarthritis, right knee (02/19/20) Surgery Performed Operation Date: 02/18/20 09:00 Actual Procedures p Total Knee Arthroplasty(Right) - Ion Medeiros MD Physical Therapy Treatment Note M2 PT-IP Current Condition Start: 02/18/20 15:47 Freq: NEEDED Status: Active Protocol: Document 02/18/20 14:10 AB (Rec: 02/18/20 16:24 AB [id number]) Physical Therapy Current Condition Current Condition Evaluation Date 02/18/20 Treatment Diagnosis s/p R TKA; difficulty in walking Onset Date 02/18/20 Weight Bearing Status Weight Bearing Status Weight Bear as Tolerated Allowed Weight Bearing Amount (enter % WBAT RLE or #) (%) M3 PT-IP Subjective Start: 02/18/20 15:47 Freq: NEEDED Status: Active Protocol: Document 02/20/20 16:01 KS (Rec: 02/20/20 17:01 KS [email or web address]) Subjective Physical Therapy Visit Type Type Treatment Note Visit Start Time 16:01 Visit Stop Time 16:25 Total Visit Minutes 24 Number of MARINE EXTENSION AGENT Visits 1 Physical Therapy Visit Comments Patient Comments Pt agreeable to work w/ therapy, but reports high pain . Therapy Pain Assessment Pain When Pain Assessed During Mobility Pain Present Pain Present Pain Reported Location Right Knee Intensity 8 Scale Used Numeric (0 - 10) Pain Behaviors Facial Grimacing,Guarding, Moaning,Wincing Pain Management Techniques Apply Cold,Distraction, Modification of Treatment,Re- positioning,Timing of Activity with Medications M4 PT-IP Mobility and Gait Start: 02/18/20 15:47 Freq: NEEDED Status: Active Protocol: Document 02/20/20 16:01 KS (Rec: 02/20/20 17:01 KS [email or web address]) PT-Bed Mobility Assessment Supine to Sit Supine to Sit Contact Guard Assistance,1 Person Assistance,Head of Bed Elevated,Bedrails Sit to Supine Sit to Supine Minimal Assistance,1 Person Assistance Scooting Scooting to Edge of Bed Moderate Assistance PT-Transfer Assessment Sit to and From Stand Sit to and from Stand Minimal Assistance,1 Person Assistance Equipment Transfer Assistive Device Gait Belt,Front Wheeled Walker Orthotic/Prosthetic Devices or Brace: No Transfers Transfer Destination Bed Transfer Ability Level of Assist Contact Guard Assistance, Minimal Assistance,1 Person Assistance,Use of Upper Extremities Comments Mobility Comments Pt in bed upon arrival from therapy. Pt completed 1x10 ankle pumps, quad sets, and glute sets, but was unable to complete heel slides d/t pain. PROM to R knee, pt was guarding throughout. Pt then sup<>sit CGA w/ HOB elevated and Mod A for scooting to EOB. Pt reports 8/10 pain w/ movement. He then sit<>stand EOB w/ Min A and FWW and weight shifted ~2 min followed by [address]. Pt then requested to get back in bed. Min A for sit<>sup for LE guidance back into bed. PT repositioned in bed w/ pillow under ankle to assist knee extension. SCDs on. Requested nursing to alternate pillow between under knee and ankle to prevent stiffness. Gait Assessment Comments Gait Comments unable to ambulate this tx session, please refer to mobility for more details. M5 PT-IP Objective Assessments Start: 02/18/20 15:47 Freq: NEEDED Status: Active Protocol: Document 02/18/20 14:10 AB (Rec: 02/18/20 16:24 AB [id number]) Orientation Orientation/Cognition Level of Alertness Alert Orientation Name,Age,Place,Situation Safety Awareness Decreased Safety Awareness Gross Range of Motion Lower Extremity ROM Assessment Right Impaired Impairments R knee flexion ~ 90 deg Strength Lower Extremity Strength Assessment Right Impaired Hip 3/5 Knee 3+/5 Sensation Assessment Sensation Light Touch Impaired Proprioception (Position) Impaired Sensation Description Numbness Comments Sensation Comments B hips and buttocks numbness M6 PT-IP Treatment Start: 02/18/20 15:47 Freq: NEEDED Status: Active Protocol: Document 02/20/20 16:01 KS (Rec: 02/20/20 17:01 KS [email or web address]) Physical Therapy Treatment Exercises Exercises Ankle Pumps,Gluteal Sets,Quad Sets,Heel Slides Education Education Provided Weight Bearing Status,Post-Op Packet,Safety Other Treatments Other Treatment Performed Knee PROM M7 PT-IP Assessment and Plan Start: 02/18/20 15:47 Freq: NEEDED Status: Active Protocol: Document 02/20/20 16:01 KS (Rec: 02/20/20 17:01 KS [email or web address]) PT Summary Assessment and Plan Potential Rehabilitation Potential Good Summary Impairments Pain,ROM,Strength,Balance, Coordination,Sensation,Tone, Cognition,Bed Mobility, Transfers,Gait,Activity Tolerance Progress Towards Goals Slow Progress due to Pain,Slow Progress due to Medical Issues Assessment Summary Pt continues to be limited by high levels of pain, but was able to tolerate LE strengthening exercises and weight shifting and marching in place. Will plan to progress ambulation tomorrow, if pt is able to tolerate. Pt knee ROM limited in ext and flexion. Discharge plan will depend on pts progress. Goals Bed Mobility Goal Independent Transfer Goal Independent,Front Wheeled Walker,Four Wheeled Walker Gait Goal Independent,Front Wheel Walker ,Four Wheel Walker Gait Distance 150 Other Goals up/down 2 steps R rail and 1 platform step SBA Days to Meet Goals 5 Frequency of Treatment Frequency Of Treatment Twice a Day Treatment Plan Physical Therapy Treatment Plan Bed Mobility Training,Transfer Training,Gait Training, Therapeutic Exercise,Balance Retraining,Post Op Education, Discharge Planning,Hot or Cold Pack,Neuromuscular Re-ed, Coordination Retraining,Manual Therapy Other Recommendations and Next Treatment ambulation, stair climbing, Focus caregiver training Recommendations To Nursing Amount of Assist Needed 1 Person Assist Discharge Recommendations PT Discharge Recommendations Home with Assistance,SNF Rehab ,Outpatient PT Other Discharge Recommendations depending on progress: SNF vs home with assist and HHPT Equipment Needed for Home Before FWW if not safe with 4WW Discharge Transportation Needs at Discharge Private Vehicle
--- NOTE | 2020-02-20 16:36 | PC.NURSE ---
Addendum entered by Cassie Blum R.N. 02/20/20 23:36: Up to commode without stool. Reports pain 3/10 to right knee. Declines offer for anaglesia. Brisk urinary output per urinal. Addendum entered by Cassie Blum R.N. 02/20/20 19:45: Miralax provided to promote bowel function. Pt requests to be permitted to sit on edge of bed. This was allowed. Now resting quietly in bed with eyes closed without signs of distress or discomfort. Dr. Vargas in house and was informed by janitor supervisor, Aleja, pt did not discharge today d/t pain issues and mobility issues. Original Note: Pt awake and alert in bed. P.T. in to work with pt in room. Instructs staff to reposition pillow to RLE to position leg so knee is alternately flexed and straightened. Chapito wrap is dry and intact. Ice to right knee. Medicated as per emar for pain 8/10 to right knee. Pt c/o abdominal cramping and denies passing flatus. Reports feels as though bowels need to move. Prune juice administered. Instructed pt in constipating effects of narcotics. Declines tylenol and ibuprofen. Warm blanket to abdomen.
[2020-02-20] MEDS: polyethylene glycoL 3350 17 GM POWD.PACK PO (17:44)
[2020-02-20] MEDS: ATORVASTATIN 20 MG TABLET 40 MG PO (20:53)
[2020-02-20] MEDS: dilTIAZem CD 120 MG CAP PO (20:56)
[2020-02-20] MEDS: METOPROLOL ER 50 MG TABLET PO (20:56)
[2020-02-20] MEDS: ZOLPIDEM 5 MG TABLET 10 MG PO (23:46)
--- NOTE | 2020-02-20 23:52 | PC.NURSE ---
Addendum entered by Renetta Ramos R.N. 02/21/20 06:08: Up to [facility] [place] unable to have BM. States right knee pain is 6/10 so medicated with po Dilaudid and ice applied. Moving slowly and noted reluctance to put full weight on right LE. Needs cueing for transfers. Original Note: Patient is alert and oriented. Breath sounds CTA with RA sat of 94%. HRR. Denies nausea. BT present and has been passing flatus but has not had BM since 02/17; abdomen is distended and tender to palpation. Voiding per urinal; denies dysuria or urgency but has frequency which he states is chronic. Able to turn self in bed. Able to move right LE but not able to lift off bed. Has been getting out of bed with walker and 1 assist. Refusing SCD's tonight. Aquacel dressing to right knee covered with stacey wrap is CDI. States pain is 3/10 but tolerable; ice applied but declined pain medication. Medicated with Ambien for sleep. Fall risk score is high and bed alarm is activated.
[2020-02-21] MEDS: HYDROMORPHONE 2 MG TABLET PO ×3 (06:06→13:42)
[2020-02-21 09:10] VITALS: BP 151/93; PULSE 84; RESP 16; TEMP 36.5; O2SAT 95
[2020-02-21] MEDS: PANTOPRAZOLE 40 MG TABLET PO (09:11)
[2020-02-21] MEDS: TAMSULOSIN 0.4 MG CAPSULE PO (09:11)
[2020-02-21] MEDS: DOCUSATE 100 MG CAPSULE PO ×2 (09:11→22:18)
[2020-02-21] MEDS: ASPIRIN EC 81 MG TABLET PO ×2 (09:11→22:18)
[2020-02-21] MEDS: LEVOTHYROXINE 100 MCG TABLET PO (09:11)
[2020-02-21] MEDS: polyethylene glycoL 3350 17 GM POWD.PACK PO (09:18)
[2020-02-21] MEDS: SODIUM CHLORIDE 0.9% FLUSH 10 ML IV ×2 (09:22→22:19)
--- NOTE | 2020-02-21 10:40 | PT.IPTN ---
Current Diagnoses Unilateral primary osteoarthritis, right knee (02/19/20) Surgery Performed Operation Date: 02/18/20 09:00 Actual Procedures p Total Knee Arthroplasty(Right) - Ion Medeiros MD Physical Therapy Treatment Note M2 PT-IP Current Condition Start: 02/18/20 15:47 Freq: NEEDED Status: Active Protocol: Document 02/18/20 14:10 AB (Rec: 02/18/20 16:24 AB [id number]) Physical Therapy Current Condition Current Condition Evaluation Date 02/18/20 Treatment Diagnosis s/p R TKA; difficulty in walking Onset Date 02/18/20 Weight Bearing Status Weight Bearing Status Weight Bear as Tolerated Allowed Weight Bearing Amount (enter % WBAT RLE or #) (%) M3 PT-IP Subjective Start: 02/18/20 15:47 Freq: NEEDED Status: Active Protocol: Document 02/21/20 10:40 AB (Rec: 02/21/20 12:29 AB [id number]) Subjective Physical Therapy Visit Type Type Treatment Note Visit Start Time 10:40 Visit Stop Time 11:03 Total Visit Minutes 23 Number of PREPRESS OPERATOR Visits 0 Physical Therapy Visit Comments Patient Comments pt agreeable to do PT Therapy Pain Assessment Pain When Pain Assessed At Rest Pain Present Pain Present Pain Reported Location Right Knee Intensity 5 Scale Used Numeric (0 - 10) Pain Management Techniques Apply Cold,Modification of Treatment,Re-positioning, Timing of Activity with Medications M4 PT-IP Mobility and Gait Start: 02/18/20 15:47 Freq: NEEDED Status: Active Protocol: Document 02/21/20 10:40 AB (Rec: 02/21/20 12:29 AB [id number]) PT-Bed Mobility Assessment Supine to Sit Supine to Sit Minimal Assistance,1 Person Assistance Sit to Supine Sit to Supine Standby Assistance Scooting Scooting to Edge of Bed Standby Assistance PT-Transfer Assessment Sit to and From Stand Sit to and from Stand Contact Guard Assistance,1 Person Assistance,Use of Upper Extremities Equipment Transfer Assistive Device Gait Belt,Front Wheeled Walker Orthotic/Prosthetic Devices or Brace: No Comments Mobility Comments completed supine to sit min A with moving RLE to edge of bed and was able to sit on EOB SBA. completed sit to stand CGA and ambulation ~ 125 ft using FWW with SBA to CGA. (+ ) slight R knee buckling but pt able to control and recover balance. pt ambulated back to room and completed sit to supine SBA. positioned pt in bed. call light and table placed within reach. Gait Assessment Gait Gait Assistance Required: Standby Assistance,Contact Guard Assist Distance (Feet) 125 Able to Maintain Weight Bearing Status Yes During Gait Assistive Devices Assistive Device Gait Belt,Front Wheeled Walker Orthotic/Prosthetic Devices or Brace: No Gait Deviations General Gait Pattern Antalgic,Decreased Stride Length,Decreased Feet Clearance Factors Limiting Gait Function Factors Limiting Gait Function Decreased Activity Tolerance, Decreased Strength,Limited Range of Motion,Pain,Poor Balance,Poor Safety Awareness M5 PT-IP Objective Assessments Start: 02/18/20 15:47 Freq: NEEDED Status: Active Protocol: Document 02/18/20 14:10 AB (Rec: 02/18/20 16:24 AB [id number]) Orientation Orientation/Cognition Level of Alertness Alert Orientation Name,Age,Place,Situation Safety Awareness Decreased Safety Awareness Gross Range of Motion Lower Extremity ROM Assessment Right Impaired Impairments R knee flexion ~ 90 deg Strength Lower Extremity Strength Assessment Right Impaired Hip 3/5 Knee 3+/5 Sensation Assessment Sensation Light Touch Impaired Proprioception (Position) Impaired Sensation Description Numbness Comments Sensation Comments B hips and buttocks numbness M6 PT-IP Treatment Start: 02/18/20 15:47 Freq: NEEDED Status: Active Protocol: Document 02/21/20 10:40 AB (Rec: 02/21/20 12:29 AB [id number]) Physical Therapy Treatment Exercises Exercises Heel Slides Education Education Provided Safety M7 PT-IP Assessment and Plan Start: 02/18/20 15:47 Freq: NEEDED Status: Active Protocol: Document 02/21/20 10:40 AB (Rec: 02/21/20 12:29 AB [id number]) PT Summary Assessment and Plan Potential Rehabilitation Potential Good Summary Impairments Pain,ROM,Strength,Balance,Bed Mobility,Transfers,Gait, Activity Tolerance Progress Towards Goals Slow Progress due to Pain,Slow Progress due to Medical Issues Assessment Summary pt requiring min A with supine to sit and CGA for ambulation using FWW. pt plans to go home and spouse will assist with meals and setting up things for pt but will not be able to physically assist pt much but can help some. pt will require outpt PT. Goals Bed Mobility Goal Independent Transfer Goal Independent,Front Wheeled Walker,Four Wheeled Walker Gait Goal Independent,Front Wheel Walker ,Four Wheel Walker Gait Distance 150 Other Goals up/down 2 steps R rail and 1 platform step SBA Days to Meet Goals 5 Frequency of Treatment Frequency Of Treatment Twice a Day Treatment Plan Physical Therapy Treatment Plan Bed Mobility Training,Transfer Training,Gait Training, Therapeutic Exercise,Balance Retraining,Post Op Education, Discharge Planning,Hot or Cold Pack,Neuromuscular Re-ed, Coordination Retraining,Manual Therapy Other Recommendations and Next Treatment ambulation, stair climbing, Focus caregiver training Recommendations To Nursing Amount of Assist Needed 1 Person Assist Discharge Recommendations PT Discharge Recommendations Home with Assistance, Outpatient PT Equipment Needed for Home Before FWW if not safe with 4WW Discharge Transportation Needs at Discharge Private Vehicle
[2020-02-21 13:37] VITALS: BP 130/83
--- NOTE | 2020-02-21 14:01 | CM.DPC ---
Addendum entered by NELSY Grimm 02/21/20 15:24: ADD: Per RN, Ortho MD rounded and determined pt is medically stable to discharge home today. Per PT/RN, pt now upset stating he does not feel ready to d/c home today and frustrated that MD did not directly communicate discharge to him. SW met bedside again briefly with pt while PT was beginning to work with pt and he discussed his concerns with pain, slow ambulation, and constipation. PT helped pt to bathroom as pt has had doses of stool softeners and then worked with pt on stairs and due to patient's difficulty with stairs and some differing information he is providing regarding his home situation with stairs and rails, pt not safe for d/c home yet this evening. PT discussed possible need for SNF if pt continues to feel he is not safe for home and pt very direct that he will not go to SNF. PT recommending HH now and will work with pt again in the morning. SW made [facility] referral based on vendor calendar and faxed F2F and MD orders as well to review. Plan: SW to follow closely in the morning for further conversation with pt regarding medical justification for staying in the hospital and HH vs SNF for safe d/c plan. NELSY Grimm Original Note: DCP Cont: Per RN, pt seems to be voiding independently still and per PT pt seems less painful today and was able to participate in hallway ambulation much better today but still having some pain management issues. Patient's discharge has been cancelled twice previously due to urinary retention and then significant pain management issues. RON met bedside with pt and explained role and pt confirms that his plan is to d/c home with his and has outpt PT set up already but states his is not physically capable of providing much physical assist and therefore even though pt is currently able to ambulate fairly well he feels that staying the night and discharging tomorrow is a safer plan. RON provided pt with his Medicare Rights and pt acknowledged understanding and signed his Medicare Message in anticipation of likely d/c home today or tomorrow and aware that MD will need to feel they can medically justify pt staying in the hospital. RON updated PT who will be working with pt again this afternoon. Plan: SW to follow for further PT this afternoon and likely d/c home this evening or tomorrow with outpt PT. Carmen Grey MSW
--- NOTE | 2020-02-21 14:27 | PT.IPTN ---
Current Diagnoses Unilateral primary osteoarthritis, right knee (02/19/20) Surgery Performed Operation Date: 02/18/20 09:00 Actual Procedures p Total Knee Arthroplasty(Right) - Ion Medeiros MD Physical Therapy Treatment Note M2 PT-IP Current Condition Start: 02/18/20 15:47 Freq: NEEDED Status: Active Protocol: Document 02/18/20 14:10 AB (Rec: 02/18/20 16:24 AB [id number]) Physical Therapy Current Condition Current Condition Evaluation Date 02/18/20 Treatment Diagnosis s/p R TKA; difficulty in walking Onset Date 02/18/20 Weight Bearing Status Weight Bearing Status Weight Bear as Tolerated Allowed Weight Bearing Amount (enter % WBAT RLE or #) (%) M3 PT-IP Subjective Start: 02/18/20 15:47 Freq: NEEDED Status: Active Protocol: Document 02/21/20 14:27 AB (Rec: 02/21/20 17:05 AB [id number]) Subjective Physical Therapy Visit Type Type Treatment Note Visit Start Time 14:27 Visit Stop Time 15:18 Total Visit Minutes 36 Notes pt seen for split visits: 1427 to 1445 andn 1500 to 1518 Number of WATERMELON INSPECTOR Visits 0 Physical Therapy Visit Comments Patient Comments pt wanted to stay for another night and feels like he is not ready to go due to his constipation etc. M4 PT-IP Mobility and Gait Start: 02/18/20 15:47 Freq: NEEDED Status: Active Protocol: Document 02/21/20 14:27 AB (Rec: 02/21/20 17:05 AB [id number]) PT-Bed Mobility Assessment Supine to Sit Supine to Sit Contact Guard Assistance Sit to Supine Sit to Supine Contact Guard Assistance, Minimal Assistance Scooting Scooting to Edge of Bed Standby Assistance PT-Transfer Assessment Sit to and From Stand Sit to and from Stand Standby Assistance,1 Person Assistance,Use of Upper Extremities Equipment Transfer Assistive Device Gait Belt,Front Wheeled Walker Orthotic/Prosthetic Devices or Brace: No Transfers Transfer Destination Toilet Transfer Technique ambulated using FWW Transfer Ability Level of Assist Standby Assistance Comments Mobility Comments nurse and ortho doctor Dr. rodriguez asking if pt is ready for d/c. informed nurse this morning that pt is doing better and was able to ambulate in the hallway with PT but will try stair climbing again in the afternoon. informed to nurse that pt already completed stair climbing the other day and pt was able to complete safely. Dr. Rodriguez, nurse and this PT went to pt's room to inform regarding d/c and pt stated got frustrated and stated that supportive employment case manager came in and informed him that it is ok to stay for another night which the pt wanted to do. pt stated that PT is ready to d/ c but what about his constipation and abdominal spasms and pain. explained to pt what PT is referring to about being ready for d/c is his mobility level due to pt was only requiring SBA to CGA with mobility with PT during am tx session. pt is getting agitated and stated I am going to complain. pt then stated that what about the stairs. PT told pt that that is why PT is back for an afternoon session to work with pt again and do stairs. PT informed pt that he already did stair climbing with PT the other day and was able to complete safely. pt stated that is was when he was this numb and does not have much pain. informed pt that that was post-op day 1 and pt did not complain of numbness. pt started to get out of bed and completed CGA but c/o not being able to move his LE and that it is weak. pt completed sit to stand SBA and stated that he needs to use the toilet and ambulated to the toilet using FWW SBA. call light placed next to pt and informed pt to ask for assistance when ready. informed NAC and nurse that pt is using the toilet and PT will come back to work with pt . This PT went to check on another pt but after a few minutes, WATERMELON INSPECTOR informed PT that pt is out in the hallway and wants to do stair climbing at that moment. went to see the pt with WATERMELON INSPECTOR and nurse by the stairs. pt stated that he does not have rails to get into his house (pt informed pt during evaluation and also during stair training 2 days ago that he has 2 steps with R rail and a platform step to get into the house). stated that he only has a post on the right and nothing on the L side. attempted steps with R vertical banister only but pt changed hand position to lean on rail and also reaching for the L rail. reminded pt that he does not have anything on the L side. Pt changed and stated that he now has a wall on the L side. Pt completed up/down steps with max A and max cues. pt stated that his knee is giving out on him. assisted pt back to his room. asked pt about his d/c plan since he stated that spouse will not be able to assist him . pt stated that definitely spouse will not be able to assist and that there is nobody to assist him. informed pt regarding SNF rehab and pt stated that he will not go to one and that he just needs to stay one more night to regain his strength back. informed pt that is might take longer for LE strength to come back and may or may not happen overnight and has to reconsider SNF rehab if he feels he is not ready to go home. Pt ambulated from w/c to bed using FWW SBA. completed sit to supine min A wiht RLE. asked pt if spouse can assist with elevating his LE up on bed and stated yes and also stated that now maybe son will be able to come to assist him with stair climbing. positioned pt in bed. call light and table placed within reach. informed nurse and supportive employment case manager regarding pt's mobility and concerns and responses to questions. Gait Assessment Gait Gait Assistance Required: Standby Assistance Distance (Feet) 20 Able to Maintain Weight Bearing Status Yes During Gait Assistive Devices Assistive Device Gait Belt,Front Wheeled Walker Orthotic/Prosthetic Devices or Brace: No Gait Deviations General Gait Pattern Antalgic,Decreased Stride Length,Decreased Feet Clearance Factors Limiting Gait Function Factors Limiting Gait Function Decreased Activity Tolerance, Decreased Strength,Difficulty Following Directions,Limited Range of Motion,Pain,Poor Balance,Poor Safety Awareness Stair Climbing Assessment Evaluation Level of Assist On Stairs Maximal Assistance,1 Person Assistance Devices Stair Climbing Assistive Devices Right Railing Technique/Endurance Stair Climbing Direction Ascend and Descend Stair Climbing Technique Step to Step Number of Steps Climbed 3 Stair Climbing Set # Repetitions (reps) 1 M5 PT-IP Objective Assessments Start: 02/18/20 15:47 Freq: NEEDED Status: Active Protocol: Document 02/18/20 14:10 AB (Rec: 02/18/20 16:24 AB [id number]) Orientation Orientation/Cognition Level of Alertness Alert Orientation Name,Age,Place,Situation Safety Awareness Decreased Safety Awareness Gross Range of Motion Lower Extremity ROM Assessment Right Impaired Impairments R knee flexion ~ 90 deg Strength Lower Extremity Strength Assessment Right Impaired Hip 3/5 Knee 3+/5 Sensation Assessment Sensation Light Touch Impaired Proprioception (Position) Impaired Sensation Description Numbness Comments Sensation Comments B hips and buttocks numbness M6 PT-IP Treatment Start: 02/18/20 15:47 Freq: NEEDED Status: Active Protocol: Document 02/21/20 14:27 AB (Rec: 02/21/20 17:05 AB [id number]) Physical Therapy Treatment Education Education Provided Precautions,Safety M7 PT-IP Assessment and Plan Start: 02/18/20 15:47 Freq: NEEDED Status: Active Protocol: Document 02/21/20 14:27 AB (Rec: 02/21/20 17:05 AB [id number]) PT Summary Assessment and Plan Potential Rehabilitation Potential Fair Summary Impairments Pain,ROM,Strength,Balance, Coordination,Sensation,Tone, Cognition,Bed Mobility, Transfers,Gait,Activity Tolerance Progress Towards Goals Slow Progress due to Pain,Slow Progress due to Medical Issues Assessment Summary pt has been progressing with PT but had other issues( urinary retention, constipation) during hospital stay affecting mobility. pt requesting to stay another night in the hospital. completed PT session in the afternoon but pt c/o pain and stating the RLE is weak and does not have assistance at home but does not want to go to SNF but at the same time stating that spouse can help some and son might be able to assist some as well. Information related to both nurse and supportive employment case manager. pt is expressed frustration and agitation regarding d/c plan and stated that he wants to stay for another night. will have to reconfirm pt's d/ c plan and house set up with pt next tx session once pt is not agitated anymore to get a better and safer mobility training and d/c plan as pt is providing conflicting answers at this time. Goals Bed Mobility Goal Independent Transfer Goal Independent,Front Wheeled Walker,Four Wheeled Walker Gait Goal Independent,Front Wheel Walker ,Four Wheel Walker Gait Distance 150 Other Goals up/down 2 steps R rail and 1 platform step SBA Days to Meet Goals 5 Frequency of Treatment Frequency Of Treatment Twice a Day Treatment Plan Physical Therapy Treatment Plan Bed Mobility Training,Transfer Training,Gait Training, Therapeutic Exercise,Balance Retraining,Post Op Education, Discharge Planning,Hot or Cold Pack,Neuromuscular Re-ed, Coordination Retraining,Manual Therapy Other Recommendations and Next Treatment ambulation, stair climbing, Focus caregiver training Recommendations To Nursing Amount of Assist Needed 1 Person Assist Discharge Recommendations PT Discharge Recommendations Home with Assistance,Home Health Equipment Needed for Home Before FWW if not safe with 4WW Discharge Transportation Needs at Discharge Private Vehicle
--- NOTE | 2020-02-21 14:35 | PM.PN.1 ---
Exam Vital Signs (past 8 hours): - 02/21/20 09:10 02/21/20 13:37 Temperature 97.7 F Pulse Rate 84 Respiratory Rate 16 Blood Pressure 151/93 H 130/83 Pulse Oximetry 95 Oxygen Delivery Method Room Air Oxygen Flow Rate 0 Objective Labs Result Diagrams: 02/19/20 07:04 Assessment & Plan Assessment & Plan narrative: Patient is POD#3 s/p Uni knee arthroplasty. He is cleared by PT and nursing staff to be discharged. Patient has concerns about going home and is wanting to stay. Patient is neurovascularly intact on exam. Patient has no s/s of DVT in BLE. I discussed my findings with the patient. I will plan for discharging home today per PT, nursing recommendation. I discussed reasons for minimizing hospital stay including exposure to COVID-19. Patient will be discharged once he's ready and prepared to go. Discharge will be done along with his Rx for pain. He prefers dilaudid oral instead of oxycondone that he was given. Quality VTE Deep Vein Thrombosis/Pulmonary Embolism Present on Admission: No
[2020-02-21 15:43] VITALS: BP 136/85; PULSE 86; RESP 19; TEMP 36.8; O2SAT 93
--- NOTE | 2020-02-21 18:59 | PC.NURSE ---
Assumed care of pt 1500. Pt sleeping during bedside hand-off. Awakens to voice. Pt states their was confusion early in the day and states I never said I wanted to go home today. [place] c/d/i. CMS+, Denies pain. Pt expressed concerns for constipation. Bowel meds given this morning, Prune juice given now. Refused SCD's. DVT education provided. Bed alarm on. call light within reach.
[2020-02-21] MEDS: dilTIAZem CD 120 MG CAP PO (22:18)
[2020-02-21] MEDS: METOPROLOL ER 50 MG TABLET PO (22:18)
[2020-02-21] MEDS: OXYCODONE IR 10 MG TABLET PO (22:18)
[2020-02-21] MEDS: ATORVASTATIN 20 MG TABLET 40 MG PO (22:18)
[2020-02-21] MEDS: ZOLPIDEM 5 MG TABLET 10 MG PO (22:19)
[2020-02-21 22:22] VITALS: BP 144/81; PULSE 81
[2020-02-21 23:40] VITALS: BP 153/68; PULSE 82; RESP 16; TEMP 36.6; O2SAT 94
--- NOTE | 2020-02-22 01:44 | PC.NURSE ---
Addendum entered by Renetta Ramos R.N. 02/22/20 05:41: Set off bed alarm; did not call for staff assist. Assisted to bathroom. Again reluctant to put full weight on right leg. Was steady on feet but slow in mobility. States pain is 2/10 but declines pain medication or ice pack. Now sitting up in chair with chair alarm on. Original Note: Patient is alert and oriented. Breath sounds CTA with RA sat of 94%. HRR w/murmur. Denies nausea. BT present and abdomen is soft. States he is passing some flatus but has not had BM since 02/17. Abdomen appears distended but denies tenderness with palpation; does complain of feeling crampy. Voiding per urinal; denies dysuria, frequency or urgency. Moves self in bed. When out of bed is using walker with 1 assist for safety. CMS is intact and seems to be moving right LE better tonight. Still has some non pitting edema present in right leg. Again declines use of SCD's as interrupts his sleep; reminded to ankle wave when awake. Aquacel dressing to right knee is CDI. Denies pain. Fall risk score is high and bed alarm is activated.
[2020-02-22 08:20] VITALS: BP 103/72; PULSE 70; RESP 16; TEMP 36.6; O2SAT 95
[2020-02-22] MEDS: TAMSULOSIN 0.4 MG CAPSULE PO (09:56)
[2020-02-22] MEDS: DOCUSATE 100 MG CAPSULE PO (09:56)
[2020-02-22] MEDS: LEVOTHYROXINE 100 MCG TABLET PO (09:56)
[2020-02-22] MEDS: ASPIRIN EC 81 MG TABLET PO (09:56)
[2020-02-22] MEDS: SODIUM CHLORIDE 0.9% FLUSH 10 ML IV (09:56)
[2020-02-22] MEDS: PANTOPRAZOLE 40 MG TABLET PO (09:56)
--- NOTE | 2020-02-22 09:58 | PM.PN.1 ---
Exam Vital Signs (past 8 hours): Oxygen Delivery Method Room Air Oxygen Flow Rate 0 Objective Labs Result Diagrams: 02/19/20 07:04 Assessment & Plan Assessment & Plan narrative: POD#4 s/p TKA. Patient is neurovascularly intact and w/o s/s of DVT. Patient's pain is well controlled on oral medication. Will discharge today to go home. Quality VTE Deep Vein Thrombosis/Pulmonary Embolism Present on Admission: No
--- NOTE | 2020-02-22 10:00 | PT.IPTN ---
Current Diagnoses Unilateral primary osteoarthritis, right knee (02/19/20) Surgery Performed Operation Date: 02/18/20 09:00 Actual Procedures p Total Knee Arthroplasty(Right) - Ion Medeiros MD Physical Therapy Treatment Note M2 PT-IP Current Condition Start: 02/18/20 15:47 Freq: NEEDED Status: Active Protocol: Document 02/18/20 14:10 AB (Rec: 02/18/20 16:24 AB [id number]) Physical Therapy Current Condition Current Condition Evaluation Date 02/18/20 Treatment Diagnosis s/p R TKA; difficulty in walking Onset Date 02/18/20 Weight Bearing Status Weight Bearing Status Weight Bear as Tolerated Allowed Weight Bearing Amount (enter % WBAT RLE or #) (%) M3 PT-IP Subjective Start: 02/18/20 15:47 Freq: NEEDED Status: Active Protocol: Document 02/22/20 09:50 AW (Rec: 02/22/20 10:59 AW [id number]) Subjective Physical Therapy Visit Type Type Treatment Note Visit Start Time 09:05 Visit Stop Time 09:46 Total Visit Minutes 30 Notes split visit [id number] and [id number] -[id number] Physical Therapy Visit Comments Patient Comments Pt still has not had a bowel movement Patient Goals Pt feels ready to discharge today Therapy Pain Assessment Pain When Pain Assessed At Rest Pain Present Pain Present Denied Pain Location Right Knee Intensity 6 Scale Used Numeric (0 - 10) Pain Management Techniques Apply Cold,Distraction,Re- positioning,Timing of Activity with Medications M4 PT-IP Mobility and Gait Start: 02/18/20 15:47 Freq: NEEDED Status: Active Protocol: Document 02/22/20 09:50 AW (Rec: 02/22/20 10:59 AW [id number]) PT-Transfer Assessment Sit to and From Stand Sit to and from Stand Standby Assistance,1 Person Assistance,Use of Upper Extremities Equipment Transfer Assistive Device Gait Belt,Front Wheeled Walker Orthotic/Prosthetic Devices or Brace: No Transfers Transfer Destination Bed,Toilet Transfer Technique ambulated using FWW Transfer Ability Level of Assist Standby Assistance,Use of Upper Extremities Comments Mobility Comments Pt sitting up in chair upon PT arrival, ready to do PT. He completed sit to stand using FWW SBA and walked the halls. On return to the room, pt decided to attempt using the toilet hoping he could have a bowel movement. Pt was left with assurance that he would use the call light when ready to get up. This PT was passing the room 10 minutes later and answered his call light. He transferred from the toilet using grab bar on left side, indicating that he would similarly use a countertop at home. He ambulated to the bed with FWW and completed sit to supine SBA. Pt was positioned in the bed with call light and all needs within reach. Bed alarm was armed for safety. Gait Assessment Gait Gait Assistance Required: Standby Assistance Distance (Feet) 150 Able to Maintain Weight Bearing Status Yes During Gait Assistive Devices Assistive Device Gait Belt,Front Wheeled Walker Orthotic/Prosthetic Devices or Brace: No Gait Deviations General Gait Pattern Antalgic,Decreased Stride Length,Decreased Feet Clearance Factors Limiting Gait Function Factors Limiting Gait Function Decreased Activity Tolerance, Decreased Strength,Difficulty Following Directions,Limited Range of Motion,Pain,Poor Balance,Poor Safety Awareness Comments Gait Comments Pt ambulated in the halls using FWW SBA. He was able to navigate in and out of doorways, open and close the door, and navigate obstacles SBA. He did have one posterior LOB while backing up to the wheelchair but was able to recover without therapist assist. Stair Climbing Assessment Evaluation Level of Assist On Stairs Moderate Assistance,1 Person Assistance Devices Stair Climbing Assistive Devices Straight Cane,Right Railing Technique/Endurance Stair Climbing Direction Ascend and Descend Stair Climbing Technique Step to Step Number of Steps Climbed 1 Stair Climbing Set # Repetitions (reps) 3 Comments Stair Climbing Comments Pt used SPC in left hand to go up and down platform step to simulate home environment. Pt states he has a post at the top of the second stair on the right side at home. He attempted to climb the stair with SPC only, but did need to reach for the wall on the right side. M5 PT-IP Objective Assessments Start: 02/18/20 15:47 Freq: NEEDED Status: Active Protocol: Document 02/18/20 14:10 AB (Rec: 02/18/20 16:24 AB [id number]) Orientation Orientation/Cognition Level of Alertness Alert Orientation Name,Age,Place,Situation Safety Awareness Decreased Safety Awareness Gross Range of Motion Lower Extremity ROM Assessment Right Impaired Impairments R knee flexion ~ 90 deg Strength Lower Extremity Strength Assessment Right Impaired Hip 3/5 Knee 3+/5 Sensation Assessment Sensation Light Touch Impaired Proprioception (Position) Impaired Sensation Description Numbness Comments Sensation Comments B hips and buttocks numbness M6 PT-IP Treatment Start: 02/18/20 15:47 Freq: NEEDED Status: Active Protocol: Document 02/22/20 09:50 AW (Rec: 02/22/20 10:59 AW [id number]) Physical Therapy Treatment Exercises Exercises Ankle Pumps,Heel Slides Education Education Provided Safety M7 PT-IP Assessment and Plan Start: 02/18/20 15:47 Freq: NEEDED Status: Active Protocol: Document 02/22/20 09:50 AW (Rec: 02/22/20 10:59 AW [id number]) PT Summary Assessment and Plan Potential Rehabilitation Potential Good Summary Impairments Pain,ROM,Strength,Balance, Coordination,Sensation,Tone, Cognition,Bed Mobility, Transfers,Gait,Activity Tolerance Progress Towards Goals Slow Progress due to Pain,Slow Progress due to Medical Issues Assessment Summary Pt reporting 6/10 pain this morning but was able to ambulate 150 feet with FWW SBA . Stairs remained challenging. Pt agreed to arrange caregiver training with his son, Claudy, to be present for PM session. PT anticipates pt will be safe to discharge home with family assist and home health once caregiver training complete this afternoon. Goals Bed Mobility Goal Independent Transfer Goal Independent,Front Wheeled Walker,Four Wheeled Walker Gait Goal Independent,Front Wheel Walker ,Four Wheel Walker Gait Distance 150 Other Goals up/down 2 steps R rail and 1 platform step SBA Days to Meet Goals 4 Frequency of Treatment Frequency Of Treatment Twice a Day Treatment Plan Physical Therapy Treatment Plan Bed Mobility Training,Transfer Training,Gait Training, Therapeutic Exercise,Balance Retraining,Post Op Education, Discharge Planning,Hot or Cold Pack,Neuromuscular Re-ed, Coordination Retraining,Manual Therapy Other Recommendations and Next Treatment stairs, caregiver training; Focus trial gait with 4WW Recommendations To Nursing Amount of Assist Needed Standby Assistance Discharge Recommendations PT Discharge Recommendations Home with Assistance,Home Health Equipment Needed for Home Before FWW if not safe with 4WW Discharge Transportation Needs at Discharge Private Vehicle
--- NOTE | 2020-02-22 12:39 | CM.DPNOTE ---
DCP continued: Patient is being D/c today home with [facility] as long as patient and patients do well with PT and caregiver training this afternoon. Cm/Rn called and left a message with [facility] to let them know that the patient is being D/C today. Cm/RN faxed [facility] a copy of D/C summary, PT notes from today and F2F for their review. CM/RN gave patient information about [facility]. Jackie Vargas RN.
[2020-02-22] MEDS: BISACODYL 10 MG SUPP PR (12:44)
--- NOTE | 2020-02-22 13:16 | PC.NURSE ---
Pt resting in bed until lunch time and declines offer of pain meds. States he cannot eat and couldn't eat this morning either because he has not had a bowel movement. Pt declined prune juice or miralax-received miralax and stool softeners the past [address] Trevino discharged Pt earlier but Pt now feels that he cannot go home and in fact needs to go to the ER to resolve this constipation and bloating. Called Dr. Trevino in the OR and received order for Bisacodyl suppository now and gave suppository to Pt and he is now resting on his side in bed and agrees to call when he feels the urge to get up to the bathroom. Pt agrees to not get up without assistance. Son in the room during constipation/suppository conversation and he is now waiting with Pt's Spouse to see if Pt discharges.
--- NOTE | 2020-02-22 14:17 | PC.NURSE ---
Pt had xxlarge solid and loose bm in bed. Cleaned up Pt and escorted him to the bathroom where another lg. bm occurred. Pt now sitting in his chair talking with his Spouse and states he no longer has any abdominal pain or cramping. Family Spoke with Dr. Trevino and all agree Pt is appropriate to discharge home with family. PT will be doing caregiver training shortly and then Pt will be able to discharge home.
--- NOTE | 2020-02-22 14:45 | PC.NURSE ---
Pt is getting dressed with assistance from his son. Discharge reviewed and signed with Pt's Spouse. Reviewed stroke education, discharge meds, time of last dose, reviewed s/s of infection and when to call MD. Discussed showering and healthy diet. Reminded Pt to drink plenty of fluids to prevent constipation or dehydration. Spouse denies further questions and Pt will be taken out via w/c by UNIFIED COMMUNICATIONS ENGINEER to POV with family and all belongings.
--- NOTE | 2020-02-22 14:59 | PT.IPTN ---
Current Diagnoses Unilateral primary osteoarthritis, right knee (02/19/20) Surgery Performed Operation Date: 02/18/20 09:00 Actual Procedures p Total Knee Arthroplasty(Right) - Ion Medeiros MD Physical Therapy Treatment Note M2 PT-IP Current Condition Start: 02/18/20 15:47 Freq: NEEDED Status: Active Protocol: Document 02/18/20 14:10 AB (Rec: 02/18/20 16:24 AB [id number]) Physical Therapy Current Condition Current Condition Evaluation Date 02/18/20 Treatment Diagnosis s/p R TKA; difficulty in walking Onset Date 02/18/20 Weight Bearing Status Weight Bearing Status Weight Bear as Tolerated Allowed Weight Bearing Amount (enter % WBAT RLE or #) (%) M3 PT-IP Subjective Start: 02/18/20 15:47 Freq: NEEDED Status: Active Protocol: Document 02/22/20 14:43 AW (Rec: 02/22/20 14:59 AW [id number]) Subjective Physical Therapy Visit Type Type Treatment Note Visit Start Time 14:19 Visit Stop Time 14:40 Total Visit Minutes 21 Number of ROOFER APPLICATOR Visits 0 Physical Therapy Visit Comments Patient Comments I feel much better since I had a bowel movement earlier this afternoon Therapy Pain Assessment Pain When Pain Assessed At Rest Pain Present Pain Present Pain Reported Location Right Knee Intensity 4 Scale Used Numeric (0 - 10) Pain Management Techniques Apply Cold,Distraction,Re- positioning,Timing of Activity with Medications M4 PT-IP Mobility and Gait Start: 02/18/20 15:47 Freq: NEEDED Status: Active Protocol: Document 02/22/20 14:43 AW (Rec: 02/22/20 14:59 AW [id number]) PT-Transfer Assessment Sit to and From Stand Sit to and from Stand Standby Assistance,1 Person Assistance,Use of Upper Extremities Equipment Transfer Assistive Device Gait Belt,Front Wheeled Walker Orthotic/Prosthetic Devices or Brace: No Transfers Transfer Destination Chair,Wheelchair Transfer Technique pt ambulated with FWW Transfer Ability Level of Assist Standby Assistance,Use of Upper Extremities Comments Mobility Comments Pt sitting up in chair visiting with his upon PT arrival. His went to the waiting room and his son, Claudy, came to the room to participate in caregiver training. After brief education, Claudy demonstrated donning the gait belt and was able to provide appropriate level of assist throughout the session. Pt stood using FWW SBA and ambulated to the wheelchair outside the room. He transferred to and from the w/c for stair training before returning to the room and tranferring back to the chair SBA. Pt did attempt to turn away from the walker to sit in the chair, requiring verbal cues to keep the walker in front of him until prepared to sit. Pt was left in the chair with his son in the room and call light in reach. Gait Assessment Gait Gait Assistance Required: Standby Assistance Distance (Feet) 20 Able to Maintain Weight Bearing Status Yes During Gait Assistive Devices Assistive Device Gait Belt,Front Wheeled Walker Orthotic/Prosthetic Devices or Brace: No Gait Deviations General Gait Pattern Antalgic,Decreased Stride Length,Decreased Feet Clearance Factors Limiting Gait Function Factors Limiting Gait Function Decreased Activity Tolerance, Decreased Strength,Difficulty Following Directions,Limited Range of Motion,Pain,Poor Balance,Poor Safety Awareness Comments Gait Comments Ambulation was limited this session in order to conserve energy for stair training. Stair Climbing Assessment Evaluation Level of Assist On Stairs Minimal Assistance,1 Person Assistance Devices Stair Climbing Assistive Devices Straight Cane,Right Railing Technique/Endurance Stair Climbing Direction Ascend and Descend Stair Climbing Technique Step to Step Number of Steps Climbed 3 Stair Climbing Set # Repetitions (reps) 2 Comments Stair Climbing Comments Pt stated his two stairs to enter through the garage which are deep enough to accommodate the FWW. He practiced the platform step x 3 using SPC on left side and his son providing SENIOR HADOOP DEVELOPER/min A on right side. Pt and his son were able to verbalize sequencing before practice and to execute without additional cues. Pt then practiced on the stair set with SPC in left hand and leaning on the right railing ascending/right railing descending to simulate his sunken living room with half-royal for support. Pt was able to manage with CGA. M5 PT-IP Objective Assessments Start: 02/18/20 15:47 Freq: NEEDED Status: Active Protocol: Document 02/18/20 14:10 AB (Rec: 02/18/20 16:24 AB [id number]) Orientation Orientation/Cognition Level of Alertness Alert Orientation Name,Age,Place,Situation Safety Awareness Decreased Safety Awareness Gross Range of Motion Lower Extremity ROM Assessment Right Impaired Impairments R knee flexion ~ 90 deg Strength Lower Extremity Strength Assessment Right Impaired Hip 3/5 Knee 3+/5 Sensation Assessment Sensation Light Touch Impaired Proprioception (Position) Impaired Sensation Description Numbness Comments Sensation Comments B hips and buttocks numbness M6 PT-IP Treatment Start: 02/18/20 15:47 Freq: NEEDED Status: Active Protocol: Document 02/22/20 14:43 AW (Rec: 02/22/20 14:59 AW [id number]) Physical Therapy Treatment Education Education Provided Safety Other Treatments Other Treatment Performed Caregiver training completed with son, Claudy, who will provide assist for entering the home. M7 PT-IP Assessment and Plan Start: 02/18/20 15:47 Freq: NEEDED Status: Active Protocol: Document 02/22/20 14:43 AW (Rec: 02/22/20 14:59 AW [id number]) PT Summary Assessment and Plan Potential Rehabilitation Potential Good Summary Impairments Pain,ROM,Strength,Balance,Tone ,Bed Mobility,Transfers,Gait, Activity Tolerance Progress Towards Goals Progressing Toward Goals Assessment Summary Pt successfully sequenced and navigated stair training with his son providing CGA or min assist. His pain management has improved and his constipation has resolved. Pt is safe to discharge to home environment with assist and home health PT. Goals Bed Mobility Goal Independent Transfer Goal Independent,Front Wheeled Walker,Four Wheeled Walker Gait Goal Independent,Front Wheel Walker ,Four Wheel Walker Gait Distance 150 Other Goals up/down 2 steps R rail and 1 platform step SBA Days to Meet Goals 4 Frequency of Treatment Frequency Of Treatment Twice a Day Treatment Plan Physical Therapy Treatment Plan Bed Mobility Training,Transfer Training,Gait Training, Therapeutic Exercise,Balance Retraining,Post Op Education, Discharge Planning,Hot or Cold Pack,Neuromuscular Re-ed, Coordination Retraining,Manual Therapy Recommendations To Nursing Amount of Assist Needed Standby Assistance Discharge Recommendations PT Discharge Recommendations Home with Assistance,Home Health Transportation Needs at Discharge Private Vehicle
== END 2020-02-22 15:01 | disposition home health service (06) | DRG 470 ==
PROVIDERS: Admitting Provider Orthopaedic Surgery; PCP Family Medicine; Referring Provider Orthopaedic Surgery; Visit Provider Orthopaedic Surgery
PROC: 0SRC0JZ Replacement of Right Knee Joint with Synthetic Substitute, Open Approach (ICD-10-PCS; CPT 27447; principal; 2020-02-18 09:00)
DX: M17.11 Unilateral primary osteoarthritis, right knee (principal); E07.9 Disorder of thyroid, unspecified; I10 Essential (primary) hypertension; R39.198 Other difficulties with micturition; Z87.891 Personal history of nicotine dependence
CPT/HCPCS: 36415; 73560; 85014; 85018; 97110; 97116; 97162; 97530; C1776; C9290; J0690; J1100; J2250; J2274; J2405; J2704; J3010

== ENCOUNTER → 2020-10-05 11:16 | Outpatient (CLI) | payer MEDICARE, OTHER, SELFPAY ==
[2020-02-18 13:32] VITALS: BMI 25.4
[2020-10-05] MEDS: COVID-19 VACC #1, MRNA(MOD) 100 MCG/0.5 ML VIAL IM (11:21)
== END ==
PROVIDERS: PCP Family Medicine; Visit Provider Internal Medicine
DX: Z23 Encounter for immunization (principal)
CPT/HCPCS: 0011A; 91301

== ENCOUNTER → 2020-11-02 12:03 | Outpatient (CLI) | payer MEDICARE, OTHER, SELFPAY ==
[2020-02-18 13:32] VITALS: BMI 25.4
[2020-11-02] MEDS: COVID-19 VACC #2, MRNA(MOD) 100 MCG/0.5 ML VIAL IM (12:09)
== END ==
PROVIDERS: PCP Family Medicine; Visit Provider Internal Medicine
DX: Z23 Encounter for immunization (principal)
CPT/HCPCS: 0012A; 91301